=== PATIENT | male | born 1980 | race Caucasian/White ===

== ENCOUNTER 2024-08-06 19:05 | Emergency (ER) | payer OTHER, SELFPAY ==
--- OUTSIDE RECORDS SUMMARY | 2024-08-06 19:07 | XMS_ITS | Patient Health Summary ---
Author Organization [facility] writewith Address [address] [place] [address] Care Team Providers Care Senior Environmental Practice Leader Name Role Phone Unavailable Primary Care Provider Unavailabl e Note from [facility],non-owned Affiliates and Associated Physician Practices is amultiple site organization consisting of ambulatory clinics and hospital sitesin [place], [place], [place] and [place]. This disclosure is being madepursuant to the Care Everywhere program and may not contain all information available regarding this patient. Last updated 18.[facility] writewith Social History Tobacco Use Types Packs/Day Years Used Date Smoking Tobacco: Never Assessed Sex and Gender Information Value Date Recorded Sex Assigned at Not on file Gender Identity Not on file Sexual Orientation Not on file Procedures * QUANTIFERON TB-GOLD PLUS RFLXD(Performed 10/03/2023) Performed for Encounter for drug screening * VARICELLA ZOSTER ANTIBODY IGG(Performed 10/03/2023) Performed for Encounter for drug screening * RUBELLA ANTIBODY IGG(Performed 10/03/2023) Performed for Encounter for drug screening * QUANTIFERON TB-GOLD(Performed 10/03/2023) Performed for Encounter for drug screening * DRUG SCREEN COLLECTION NON DOT(Performed 10/03/2023) Performed for Encounter for drug screening Results * QUANTIFERON TB-GOLD PLUS RFLXD (10/03/2023 8:23 AM CDT) [facility] QuantiFERON Criteria Comment 10/05/2023 9:08 AM CDT [facility] ([facility]) Comment: QuantiFERON-TB Gold Plus is a qualitative indirect test for M tuberculosis infection (including disease) and is intended for use in conjunction with risk assessment, radiography, and other medical and diagnostic evaluations. The QuantiFERON-TB Gold Plus result is determined by subtracting the Nil value from either TB antigen (Ag) value. The Mitogen tube serves as a control for the test. QuantiFERON TB1 Ag Value 0.03 IU/mL 10/05/2023 9:08 AM CDT [facility] ([facility]) QuantiFERON TB2 Ag Value 0.03 IU/mL 10/05/2023 9:08 AM CDT [facility] ([facility]) QuantiFERON Nil Value 0.01 IU/mL 10/05/2023 9:08 AM CDT [facility] ([facility]) QuantiFERON Mitogen Value >10.00 IU/mL 10/05/2023 9:08 AM CDT [facility] ([facility]) Blood BLOOD SPECIMEN / Unknown Lab Venipuncture / Unknown 10/03/2023 8:23 AM CDT 10/03/2023 8:23 AM CDT Narrative [facility] ([facility]) - 10/05/2023 9:08 AM CDT Performed at: [address] [place] [id number] Operations Dispatcher: Dhruv Robin PhD, Phone: [phone] Provider Unknown LAB - CHEMISTRY TIFFANY REA Performing Organization Address City/[facility]/ZIP Co de Phone Number [facility] ([facility]) [address] [place] [address] * DRUG SCREEN COLLECTION NON DOT (10/03/2023 8:23 AM CDT) [facility] Specimen Collection KE 10/03/2023 8:40 AM CDT [facility] ([facility]) Other URINE / Unknown Collection / Unknown 10/03/2023 8:23 AM CDT 10/03/2023 8:23 AM CDT Provider Unknown LAB - URINE CHEMISTR Y ORDERABLES [facility] ([facility]) [address] [place] [address] * (ABNORMAL) VARICELLA ZOSTER ANTIBODY IGG (10/03/2023 8:23 AM CDT) Varicella zoster Virus Antibody IgG 151(L) Immune >165 index 10/04/2023 8:09 AM CDT [facility] ([facility]) Comment: A second sample should be collected and tested no less than 2-4 weeks. Negative <135 Equivocal 135 - 165 Positive >165 A positive result generally indicates exposure to the pathogen or administration of specific immunoglobulins, but it is not indication of active infection or stage of disease. Blood BLOOD SPECIMEN / Unknown Lab Venipuncture / Unknown 10/03/2023 8:23 AM CDT 10/03/2023 8:23 AM CDT Narrative [facility] ([facility]) - 10/04/2023 8:09 AM CDT Performed at: [facility] [id number] Operations Dispatcher: Dhruv Robin PhD, Phone: [phone] Provider Unknown LAB - CHEMISTRY ORDE ÁLVARO Performing Organization Address [facility] de Phone Number [facility] [address] [place] [address] * RUBELLA ANTIBODY IGG (10/03/2023 8:23 AM CDT) Pathologist [facility] Rubella Antibody 1.45 Immune >0.99 index 10/04/2023 7:07 AM CDT [facility] ([facility]) Comment: Non-immune <0.90 Equivocal 0.90 - 0.99 Immune >0.99 Blood BLOOD SPECIMEN / Unknown Lab Venipuncture / Unknown 10/03/2023 8:23 AM CDT 10/03/2023 8:23 AM CDT Narrative [facility] ([facility]) - 10/04/2023 7:07 AM CDT Performed at: [facility] [id number] Operations Dispatcher: Dhruv Robin PhD, Phone: [phone] Provider Unknown LAB - SEROLOGY ORDER JUDI Performing Organization Address [facility]/ZIP Co de Phone Number [facility]) [address] [place] [address] * QUANTIFERON TB-GOLD (10/03/2023 8:23 AM CDT) [facility] QuantiFERON Incubation Incubation performed. 10/05/2023 9:08 AM CDT [facility]) QuantiFERON-TB Gold Plus Negative Negative 10/05/2023 9:08 AM CDT [facility] ([facility]) Comment: No response to M tuberculosis antigens detected. Infection with M tuberculosis is unlikely, but high risk individuals should be considered for additional testing (ATS/IDSA/CDC Clinical Practice Guidelines, 2017). The reference range is an Antigen minus Nil result of <0.35 IU/mL. Chemiluminescence immunoassay methodology Blood BLOOD SPECIMEN / Unknown Lab Venipuncture / Unknown 10/03/2023 8:23 AM CDT 10/03/2023 8:23 AM CDT Narrative [facility] ([facility]) - 10/05/2023 9:08 AM CDT Performed at: - [address] [id number] Operations Dispatcher: Dhruv Robin PhD, Phone: [phone] Provider Unknown LAB - CHEMISTRY TIFFANY REA [facility] ([facility]) [address] [place] [address]
--- OUTSIDE RECORDS SUMMARY | 2024-08-06 19:07 | XMS_ITS | Clinical Summary ---
Author Organization [facility] Address [address] [place] [address] Care Team Providers Care Solder Leveler [employer] Name Role Phone Unavailable Primary Care Provider Unavailabl e Source Comments [facility],non-owned Affiliates and Associated Physician Practices is amultiple site organization consisting of ambulatory clinics and hospital sitesin [place], [place], [place] and [place]. This disclosure is being madepursuant to the Care Everywhere program and may not contain all information available regarding this patient. Last updated 18.[facility] Social History Tobacco Use Types Packs/Day Years Used Date Smoking Tobacco: Never Assessed Sex and Gender Information Value Date Recorded Sex Assigned at Not on file Gender Identity Not on file Sexual Orientation Not on file Plan of Treatment Health Maintenance Due Date Last Done Comments COLOGUARD (AGES 45-75) - COL ON CA SCREENING 1979 COLON MONITORING 1979 COLONOSCOPY - COLON CA SCREENING 1979 CT COLONOGRAPHY - COLON CA SCREENING 1979 Colorectal Cancer Screening 1979 FIT - COLON CA SCREENING 1979 FLEX SIG - COLON CA SCREENING 1979 LIPID TESTING 1979 HIV SCREENING 1994 HEPATITIS C SCREENING 05/25/1997 DTAP/TDAP/TD VACCINES (1 - Tdap) 1998 HEPATITIS B VACCINE (1 of 3 - 19+ 3-dose series) 1998 COVID-19 VACCINE ( - 2023-2 5 season) 2024 INFLUENZA VACCINE (#1) 2024 DEPRESSION SCREENING 06/27/2024 ZOSTER VACCINE (1 of 2) 2029 HIB VACCINE Aged Out No longer eligi ble based on patient's age to complete this topic HPV VACCINE Aged Out No longer eligi ble based on patient's age to complete this topic MENINGOCOCCAL (Group B) VACCINE Aged Out No longer eligible based on patient's age to complete this topic MENINGOCOCCAL VACCINE Aged Out No juarez kenton eligible based on patient's age to complete this topic PNEUMOCOCCAL VACCINE Aged Out No long er eligible based on patient's age to complete this topic
--- OUTSIDE RECORDS SUMMARY | 2024-08-06 19:07 | XMS_ITS | Referral Summary ---
Author Organization [facility] [employer] Address [address] [place] [address] Care Team Providers Care Mucker Cofferdam Name Role Phone Unavailable Primary Care Provider Unavailabl e Source Comments [facility],non-owned Affiliates and Associated Physician Practices is amultiple site organization consisting of ambulatory clinics and hospital sitesin [place], [place], [place] and [place]. This disclosure is being madepursuant to the Care Everywhere program and may not contain all information available regarding this patient. Last updated 18.[facility] [employer] Social History Tobacco Use Types Packs/Day Years Used Date Smoking Tobacco: Never Assessed Sex and Gender Information Value Date Recorded Sex Assigned at Not on file Gender Identity Not on file Sexual Orientation Not on file Plan of Treatment Not on file
--- OUTSIDE RECORDS SUMMARY | 2024-08-06 19:08 | XMS_ITS | Clinical Summary ---
Author Organization [facility] Address [address] [place] [address] Care Team Providers Care Donations Attendant Name Role Phone Dylan Durbin MD Primary Care Provider [phone] Dylan Durbin MD Unavailable [phone] Kamilah Triana NP Unavailable Allergies No known active allergies Medications albuterol HFA (PROVENTIL HFA) 90 mcg/actuation inhaler inhale 2 puff by inhalation route every 4 - 6 hours as needed 1 Inhaler 6 06/17/20 16 Active acetaminophen (TYLENOL) 500 mg tablet Take 1 tablet (500 mg total) by mouth every 6 (six) hours as needed for pain Active loratadine (CLARITIN) 10 mg tablet Take 1 tablet (10 mg total) by mouth daily Active metFORMIN (GLUCOPHAGE) 500 mg tabletIndications:Ty pe 2 diabetes mellitus without complication, without long-term current use of insulin (CMS/HCC) ([facility]) Take 2 tablets (1,000 mg total) by mouth 2 (two) times a day with meals 120 tablet 11 01/18/20 23 Active chlorthalidone (HYGROTON) 25 mg tabletIndications:Hy pertension associated with diabetes (HCC) Take 1 tablet (25 mg total) by mouth daily 90 tablet 1 02/26/20 23 Active busPIRone (BUSPAR) 5 mg tabletIndications:Ge neralized Anxiety Disorder Take 1 tablet (5 mg total) by mouth 3 (three) times a day 90 tablet 1 02/26/20 23 Active azelastine (ASTELIN) 137 mcg (0.1 %) nasal spray Administer 1 spray into each nostril 2 (two) times a day Use in each nostril as directed 30 mL 06/03/20 23 Active glipiZIDE (GLUCOTROL) 5 mg tabletIndications:ty pe 2 diabetes mellitus Take 1 tablet (5 mg total) by mouth daily 90 tablet 3 06/03/20 23 Active blood-glucose sensor deviceIndications:Un controlled type 2 diabetes mellitus with hyperglycemia (HCC) 1 Device every 2 (two) weeks 2 each 3 06/03/20 23 Active fenofibrate nanocrystallized (TRICOR) 145 mg tabletIndications:Hy perlipidemia associated with type 2 diabetes mellitus (HCC) Take 1 tablet (145 mg total) by mouth daily 90 tablet 4 06/03/20 23 Active atorvastatin (LIPITOR) 20 mg tabletIndications:Hy perlipidemia associated with type 2 diabetes mellitus (HCC) Take 1 tablet (20 mg total) by mouth daily 90 tablet 4 06/03/20 23 Active montelukast (SINGULAIR) 10 mg tabletIndications:Ch ronic rhinitis Take 1 tablet (10 mg total) by mouth nightly 90 tablet 4 06/03/20 23 Active losartan (COZAAR) 100 mg tabletIndications:Hy pertension associated with diabetes (HCC) TAKE 1 TABLET BY MOUTH DAILY 90 tablet 2 07/27/19 24 Active amLODIPine (NORVASC) 5 mg tabletIndications:Hy pertension associated with diabetes (HCC) TAKE 2 TABLETS(10 MG) BY MOUTH DAILY 180 tablet 08/22/19 24 Active Active Problems Problem Noted Date Diagnosed Date Class 3 severe obesity due t o excess calories with serious comorbidity and body mass index (BMI) of 40.0 to 44.9 in adult 11/14/2023 Assessment & Plan (11/14/2023 3:49 PM CDT): Keep up the great work with weight loss! Acute lateral meniscal tear 06/03/2023 Overview (06/03/2023): suspicion for posteolateral Fall injury while running 06/03/2023 Arthralgia of knee 06/03/2023 Lumbago 06/03/2023 Uncontrolled type 2 diabetes mellitus with hyper glycemia 06/03/2023 Assessment & Plan (11/14/2023 3:48 PM CDT): Improving. Keep up the great work! Will continue to monitor. Red flags reviewed. Assessment & Plan (06/03/2023 6:22 PM CAR PINCHER): Lab Results Component Value Date HGBA1C 9.3 (H) 2023 HGBA1C 9.6 02/25/2023 HGBA1C 9.3 11/18/2022 Currently taking metformin 500 mg bid. Higher doses have caused diarrhea/gi symptoms. Will add glipizide 5 mg daily. Discussed benefits of CGM use. Declines referral to field scout. Monofilament exam completed today, no loss of protective senses. Would like for patient to repeat labs and follow-up in 3 months. Chronic maxillary sinusitis 06/03/2023 Assessment & Plan (06/03/2023 6:23 PM CAR PINCHER): Patient with frequent sinus infections. Slight improvement with most recent course of Augmentin. Continues daily antihistamine in sinus rinses. Unable to tolerate Flonase secondary to nosebleeds. Denies any fevers or purulent nasal drainage. Offered referral to ENT, patient declines but will consider in the future. Chronic rhinitis 06/03/2023 Assessment & Plan (06/03/2023 6:24 PM CAR PINCHER): Patient reports constant nasal drainage and postnasal drainage. Continues daily antihistamine and sinus rinses. Has never had any formal allergy testing, referral placed today. Prescribed nightly Singulair. Can try Astelin, will discontinue if experiencing nasal irritation or nosebleeds. Anxiety 02/25/2023 Assessment & Plan (02/25/2023 3:15 PM CDT): Patient is hesitant to retry SSRI/SNRI medication as he previously experienced negative sexual side effects. Explained to patient that Wellbutrin is likely going to adequately treating anxiety. Will try low-dose escitalopram and BusPar and monitor response. Discussed adding bupropion if patient experiences sexual dysfunction related to use of Lexapro. Explained that untreated hypertension and diabetes can also lead to ED. Encouraged stress reduction, offered to excuse patient from work for 1 week given significantly elevated blood pressure in response to stressors however he prefers to monitor for now. Patient denies depressive symptoms. Will return to office in 3 months for follow-up. Hyperlipidemia associated with type 2 diabetes kelsi khan 01/28/2022 Assessment & Plan (06/03/2023 6:21 PM CAR PINCHER): Reviewed elevated cholesterol today with patient. Recommended diet and lifestyle changes. Discussed increased risk of pancreatitis with elevated triglycerides. Prescribed atorvastatin 20 mg daily and fenofibrate 145 mg daily. Continue fish oil supplement. Repeat labs ordered today Assessment & Plan (11/18/2022 4:28 PM CDT): Lipid panel ordered. Would consider statin use but he really does not want to take any medications. Will check lipid panel and revisit. Assessment & Plan (01/28/2022 1:11 PM CDT): Continue fish oil supplement and following low fat diet. Will repeat lipid panel in 1 month with labs. Morbid (severe) obesity due to excess calories 0 01/28/2022 Assessment & Plan (06/03/2023 6:28 PM CAR PINCHER): Encouraged patient to engage in formal exercise at least 1 day per week in addition to increasing overall daily activity and steps. Discussed limiting carbs/simple sugars from diet will continue to monitor LU on CPAP 07/31/2020 Assessment & Plan (11/14/2023 3:48 PM CDT): He does follow closely with Dr. Fisher. States he feels his sleep apnea has improved with weight loss. Will continue to monitor. Assessment & Plan (06/03/2023 6:20 PM CAR PINCHER): Nightly CPAP use. Assessment & Plan (11/18/2022 4:28 PM CDT): Reports 100% compliant with CPAP and will continue. Assessment & Plan (07/31/2020 1:36 PM CAR PINCHER): Needs to set up f/u appt w/Dr Fisher re: CPAP/pressures. Hypertension associated with diabetes 11/27/2019 Assessment & Plan (06/03/2023 6:20 PM CAR PINCHER): Blood pressure is elevated in office today, patient states he did not take his blood pressure medication. Currently prescribed losartan 100 mg daily, amlodipine 5 mg daily and chlorthalidone 25 mg daily. He denies any chest pain/pressure, headaches or visual disturbances, no palpitations or shortness a breath. Discussed importance tight control of blood pressure to decrease cardiovascular risk and end-organ damage Assessment & Plan (02/25/2023 3:12 PM CDT): Uncontrolled; will add chlorthalidone 25 mg tablet once daily to current medication regimen. Patient to continue taking amlodipine 10 mg daily and losartan 100 mg daily. Patient will continue checking BP at home and report blood pressure readings for the next week. Reviewed red flag signs and symptoms warranting immediate evaluation. Patient is aware of increased risk of cardiovascular complications and stroke related to uncontrolled high blood pressure. Assessment & Plan (11/18/2022 4:28 PM CDT): Getting good readings at home. Will continue losartan. Will continue amlodipine. Continue monitoring. Again lifestyle recommendations reviewed. Assessment & Plan (01/28/2022 1:08 PM CDT): Blood pressure well controlled today. Continue to hold hctz. Anticipate continued improvement in BP with diet changes and recent weight loss. Assessment & Plan (07/31/2020 1:38 PM CAR PINCHER): The blood pressure is under good control. Ideally it should be under 130/80. Continue medications without adjustment. Continue efforts to eat well (4-5 fruits and veggies) daily and exercise for about 30 min nearly every day. Watch salt intake, keeping to less than 2000mg per day. Limit alcohol. Include strategies to cope with stress. Labs ordered today; will contact w/results once received. Assessment & Plan (11/27/2019 8:09 AM CDT): The blood pressure is under good control. Ideally it should be under 130/80. Continue medications without adjustment. Continue efforts to eat well (4-5 fruits and veggies) daily and exercise for about 30 min nearly every day. Watch salt intake, keeping to less than 2000mg per day. Limit alcohol. Include strategies to cope with stress. Labs ordered today; will contact w/results once received. Chronic fatigue 11/27/2019 Assessment & Plan (11/27/2019 9:40 AM CDT): Agreeable to sleep medicine specialist for eval. Referral entered for Dr Fisher. Aware that his office will call to set up appt/testing. To increase activity & improve diet. Sleeping difficulty 12/26/2018 Assessment & Plan (11/27/2019 8:08 AM CDT): Trazodone 100mg nightly. Reviewed good sleep hygiene: no electronics, cool/dark room, warm shower/tub prior to bedtime, no caffeine after 3-4p, no exercise 3hr prior to sleep. Discussed need to increase activity & lose weight. Assessment & Plan (12/26/2018 8:38 AM CDT): Trazodone increased from 50mg to 100mg daily. Reviewed good sleep hygiene: no electronics, cool/dark room, warm shower/tub prior to bedtime, no caffeine after 3-4p, no exercise 3hr prior to sleep. Refused influenza vaccine 09/24/2018 Assessment & Plan (07/31/2020 1:33 PM CAR PINCHER): Discussed and the patient refuses immunization today. Educated regarding the need to vaccinate for personal protection and to limit the viruses in the community to protect those most vulnerable. Ventral hernia without obstruction or gangrene 1 Overview (04/18/2018): Added automatically from request for surgery [id number] Gout 09/15/2017 Assessment & Plan (09/15/2017 6:01 AM CDT): Continue allopurinol Hernia of anterior abdominal wall 07/07/2015 Overview (10/02/2016): Ventral hernia Assessment & Plan (09/15/2017 6:01 AM CDT): Patient follows with Dr. Mahmood. He is to lose weight prior to the repair. Will continue to monitor. Arthralgia of lower leg 11/10/2013 Overview (09/30/2016): JOINT PAIN-L/LEG Low back pain 11/05/2009 Overview (10/01/2016): LUMBAGO Assessment & Plan (11/14/2023 3:48 PM CDT): Chronic intermittent. No acute exacerbation. 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 Will provide him with a note and hopefully that will help. Assessment & Plan (07/31/2020 2:23 PM CAR PINCHER): Tramadol last filled 04/30/20, #30 w/1 refill. Resent again today. Wt loss had helped w/back pain. Assessment & Plan (12/26/2018 8:37 AM CDT): Chronic lumbar back pain. Tramadol daily for pain. Tramadol refilled at this time. Aware that we fill 30 days at a time. Reviewed med SE& scheduling. Encouraged otc tylenol/ibuprofen prn back pain. Discussed ice, gentle ROM, increased activity/core strengthening & other non pharm methods of pain relief. Denies bowel/bladder dysfunction. Denies cauda equina. Reviewed red flags. Diabetes mellitus type 2 in obese Assessment & Plan (07/31/2020 2:33 PM CAR PINCHER): Lab Results Component Value Date HGBA1C 8.3% 11/27/2019 HGBA1C 6.9 06/15/2019 HGBA1C 7.1 12/26/2018 A1c today=7.3% Reviewed dietary/exercise recommendations. Instructed to perform daily foot check. Reviewed medication side effects & scheduling. To check/record FSBS & bring to appointments. Labs ordered; will call with results when received. To make follow up appointment in 3 months. Reviewed red flags; what would warrant further evaluation. Assessment & Plan (11/27/2019 9:09 AM CDT): Lab Results Component Value Date HGBA1C 6.9 06/15/2019 HGBA1C 7.1 12/26/2018 HGBA1C 6.5 05/26/2018 Reviewed dietary/exercise recommendations. Instructed to perform daily foot check. Reviewed medication side effects & scheduling. To check/record FSBS & bring to appointments. Labs ordered; will call with results when received. To make follow up appointment in 6 months. Reviewed red flags; what would warrant further evaluation. Assessment & Plan (01/15/2019 10:33 AM CDT): A1C will be checked next visit. Discussed the need to strive for regular exercise (30min most days) and diet (get at least 4-5 servings of fruit and veggies daily). Watch carbs and simple sugars. Check the blood sugar 1-2 times per day. Check the feet daily for skin breakdown and infection. Assessment & Plan (12/26/2018 8:39 AM CDT): A1c=7.1% today Reviewed dietary/exercise recommendations. Instructed to perform daily foot check. Reviewed medication side effects & scheduling. To check/record FSBS & bring to appointments. To make follow up appointment in 3 months. Reviewed red flags; what would warrant further evaluation. Sinus tachycardia Resolved Problems Problem Noted Date Diagnosed Date Resolved Date Contusion of elbow 06/03/2023 3 Headache 06/03/2023 06/03/2023 Body mass index 40.0-44.9, adult ([facility]) 01/28/2022 06/03/2023 Assessment & Plan (11/18/2022 4:27 PM CDT): Reviewed lifestyle recommendations. Assessment & Plan (01/28/2022 1:10 PM CDT): Discussed healthy diet and importance of regular physical activity. Type 2 diabetes mellitus wit hout complication, without long-term current use of insulin ([facility]) 11/27/2019 06/03/2023 Assessment & Plan (02/25/2023 3:11 PM CDT): Diabetes continues to be uncontrolled, Hemoglobin A1c 9.6% today. Recommended patient start Lantus insulin, patient declines and prefers to continue to work on diet. Patient feels his diet and lifestyle is going to improve once his stress related to his job is reduced. Continue metformin 500 mg b.i.d.. Encouraged him to check his blood glucose more frequently. Will repeat labs and follow-up in office in 3 months. If no improvement in A1c will plan to start insulin and/or refer to endocrinology. Assessment & Plan (11/18/2022 4:30 PM CDT): A1c 9.3% today. Discussed goal of less than 7. He is well aware. Reviewed medication options as well as lifestyle recommendations. Will initiate Ozempic. We discussed contraindications and side effects. Denies personal or family history of mens or mtc. Follow-up in 1 month to monitor response. Assessment & Plan (01/28/2022 11:22 AM CDT): Condition is improving Will plan to repeat a1c in 1 month. Home blood glucose readings have decreased significantly per patient. Goal A1c <7% Lab Results Component Value Date HGBA1C 9.7 (H) 12/18/2021 HGBA1C 7.3 % 07/31/2020 HGBA1C 8.3% 11/27/2019 Maintenance Diabetic (Monofilament) foot exam - completed today, protective senses intact. Annual dilated eye exam overdue. Lab Results Component Value Date ALBCREATRATU 432 (H) 12/18/2021 BP management B/P today- 132/82 improving Patient is currently is on an ADOLFO/ARB, losartan. Goal blood pressure is <140/90, long-term blood pressure goal is to be as close to 120/80 as possible. Dyslipidemia management Personally reviewed most recent LDL as shown below. Patient is not on a statin cholesterol lowering medication. Goal of less than 70 Lab Results Component Value Date LDLCALC 58 12/18/2021 Diabetes Complications History of macrovascular disease (CVA, GA, PVD) is not Present. Complications secondary to Diabetes - impotence Smoking status: non-smoker Medications increase to metformin 500mg am and 1000mg pm. Discussed labs/ordered labs that have been ordered if applicable. Discussed eating a healthy low carb diet, include fresh fruits and vegetables daily. Diabetic education and nutritional counseling available if you have not had this before or annually. Encouraged to try moving at least a total of 30 minutes/day. Just move more. Instructed to wash, dry, lotion and check feet daily. Instructed to notify office if blood sugars are less than 80 or greater than 250 for 3 days Assessment & Plan (07/31/2020 2:33 PM CAR PINCHER): Lab Results Component Value Date HGBA1C 8.3% 11/27/2019 HGBA1C 6.9 06/15/2019 HGBA1C 7.1 12/26/2018 a1c today=7.3% Reviewed dietary/exercise recommendations. Instructed to perform daily foot check. Reviewed medication side effects & scheduling. To check/record FSBS & bring to appointments. Labs ordered; will call with results when received. To make follow up appointment in 3 months. Reviewed red flags; what would warrant further evaluation. Assessment & Plan (11/27/2019 9:08 AM CDT): Lab Results Component Value Date HGBA1C 6.9 06/15/2019 HGBA1C 7.1 12/26/2018 HGBA1C 6.5 05/26/2018 Reviewed dietary/exercise recommendations. Instructed to perform daily foot check. Reviewed medication side effects & scheduling. To check/record FSBS & bring to appointments. Labs ordered; will call with results when received. To make follow up appointment in 6 months. Reviewed red flags; what would warrant further evaluation. Encounter for screening for lipoid disorders 0 06/03/2023 Assessment & Plan (11/27/2019 9:09 AM CDT): 05/26/18 FO=373 HDL=25 ZK=198 LDL=99 TC/HDL=7.5 06/02/19 VO=148 HDL=31 KE=436 LDL=83 TC/HDL=5.0 11/27/19 MY=975 HDL=34 LQ=764 LDL=81.8 TC/HDL=5.8 Copy of results as well as written explanation given to Mr Ríos. Reviewed diet/lifestyle change. Morbid obesity with BMI of 40.0-44.9, adult 12/26/2018 06/03/2023 Assessment & Plan (07/31/2020 1:37 PM CAR PINCHER): The BMI is in the obese range thus increasing your risk for cardiovascular, endocrine, GI, and musculoskeletal problems. Strive to cut back on calories and increase exercise to achieve weight loss. Include at least 4-5 fruits and vegetables in the diet daily and exercise for about 30 min nearly every day. Limit fried and high fat foods and include lean sources of protein as well as low fat dairy or other calcium sources. Consider making short and fdc goal to track your progress. Keep a diet/exercise record or on line resource to track calories in and out. Discuss your efforts with me at the next visit. Look up [employer] [facility] - this is a free calorie tracking monica. Discussed healthy diet and importance of regular physical activity. Assessment & Plan (11/27/2019 9:40 AM CDT): Reviewed need to lose weight, reviewed health benefits. Reviewed recommendations for daily intake & activity 20-30 minutes/day. Discussed healthy diet and importance of regular physical activity. States that he's recently added work out equipment at home that he will start using. Assessment & Plan (01/15/2019 9:47 AM CDT): Reviewed need to lose weight, reviewed health benefits. Reviewed recommendations for daily intake & activity 20-30 minutes/day. Discussed healthy diet and importance of regular physical activity. Assessment & Plan (12/26/2018 8:36 AM CDT): Reviewed need to lose weight, reviewed health benefits. Reviewed recommendations for daily intake & activity 20-30 minutes/day. Discussed healthy diet and importance of regular physical activity. Has started watching intake & increasing activity. Diverticulitis 04/18/2018 11/27/2019 Overview (04/18/2018): Added automatically from request for surgery [id number] Lactic acidosis 09/15/2017 11/27/2019 Assessment & Plan (09/15/2017 6:02 AM CDT): Due to sepsis from diverticulitis. Will patient on IV fluids. Awaiting repeat. HTN (hypertension) 09/15/2017 1 Assessment & Plan (11/27/2019 9:16 AM CDT): Does not want to add another medication. Wants to try lifestyle changes. The blood pressure is under good control. Ideally it should be under 130/80. Continue medications without adjustment. Continue efforts to eat well (4-5 fruits and veggies) daily and exercise for about 30 min nearly every day. Watch salt intake, keeping to less than 2000mg per day. Limit alcohol. Include strategies to cope with stress. Labs ordered today; will contact w/results once received. Assessment & Plan (01/15/2019 10:34 AM CDT): Increased amlodipine from 5mg daily to 10mg daily. The blood pressure is under good control. Ideally it should be under 130/80. Continue medications without adjustment. Continue efforts to eat well (4-5 fruits and veggies) daily and exercise for about 30 min nearly every day. Watch salt intake, keeping to less than 2000mg per day. Limit alcohol. Include strategies to cope with stress. To walk-in for BP check in 2-4 weeks. Assessment & Plan (12/26/2018 8:36 AM CDT): The blood pressure is under good control. Ideally it should be under 130/80. Continue medications without adjustment. Continue efforts to eat well (4-5 fruits and veggies) daily and exercise for about 30 min nearly every day. Watch salt intake, keeping to less than 2000mg per day. Include strategies to cope with stress. Do not double up losartan 100mg; take 100mg daily. To start amlodipine 5mg daily. appt made for 01/15/19 9639 for f/u. To check BP daily. Continue exercising. Congratulated on dietary changes. Assessment & Plan (09/15/2017 6:00 AM CDT): Appears controlled at this time. Will continue to monitor. Hold hydrochlorothiazide. Continue with IV fluids. If BP med needed will use alternative other than a diuretic as patient is currently septic. Hypokalemia 09/15/2017 11/27/2019 Assessment & Plan (09/15/2017 6:03 AM CDT): Likely due to hydrochlorothiazide. Patient received replacement in the ED. Will continue to monitor. Check Mag level. Hyperglycemia 09/15/2017 11/27/2019 Assessment & Plan (09/15/2017 6:04 AM CDT): Patient denies any history of diabetes. Patient advised he will be placed on a sliding scale with blood sugar checks however patient refused. Compromise was made with patient. If patient's blood sugar a.m. lab is still elevated then patient is okay with being placed on a low-dose sliding scale. Will continue to monitor if patient will allow for it. Sepsis 09/15/2017 11/27/2019 Assessment & Plan (09/15/2017 6:01 AM CDT): Secondary to diverticulitis. Blood cultures are in process. Lactate was elevated. Will continue to monitor. Patient is receiving IV fluids. He is on antibiotics. Patient still having fever. Will continue with p.r.n. Tylenol. Will add p.r.n. ibuprofen. Abdominal mass 08/26/2016 11/27/2019 Overview (11/19/2016): Right flank mass Knee pain 06/17/2016 06/03/2023 Overview (10/02/2016): Chronic pain of both knees Assessment & Plan (12/26/2018 8:37 AM CDT): Chronic knee pain. Tramadol daily for pain. Tramadol refilled at this time. Aware that we fill 30 days at a time. Reviewed med SE& scheduling. Body mass index 40+ - severely obese 10/03/2015 11/27/2019 Overview (10/01/2016): Morbid obesity with BMI of 40.0-44.9, adult Diverticulitis of intestine 02/10/2015 11/27/2019 Overview (10/02/2016): Diverticulitis Assessment & Plan (09/15/2017 6:05 AM CDT): Continue Cipro and Flagyl. Clear liquids for now. Patient does not want Dilaudid. Requesting tramadol. Will order p.r.n. tramadol and p.r.n. morphine. Continue to monitor. Chronic fatigue syndrome 11/10/201307/2019 Overview (09/29/2016): CHRONIC FATIGUE SYNDROME Immunizations Name Administration Dates Next Due Influenza, Unspecified 06/03/2023(Deferr ed: Patient Refused),02/25/2023(Deferred: Patient Refused),03/27/2022(Deferred: Patient Refused),03/27/2022(Deferred: Patient Refused),01/28/2022(Deferred: Patient Refused),02/25/2021(Deferred: Patient Refused),08/18/2020(Deferred: Patient Refused),06/27/2020(Deferred: Patient Refused),03/27/2020(Deferred: Patient Refused),06/27/2019(Deferred: Patient Refused),06/27/2019(Deferred: Patient Refused),06/15/2019(Deferred: Patient Refused),01/15/2019(Deferred: Patient Refused),12/26/2018(Deferred: Patient Refused),09/21/2018(Deferred: Patient Refused),09/21/2018(Deferred: Patient Refused),06/27/2018(Deferred: Patient Refused),10/18/2017(Deferred: Patient Refused),06/27/2017(Deferred: Patient Refused),06/27/2017(Deferred: Patient Refused),06/27/2017(Deferred: Patient Refused) Pneumococcal Polysaccharide PPV23 01/28/2022(Def erred: Patient Refused) Surgical History Surgery Date Site/Laterality Comments TONSILLECTOMY Tonsillectomy OTHER SURGICAL HISTORY surgery / kidney stones OTHER SURGICAL HISTORY SVT: resolved spontaneously OTHER SURGICAL HISTORY 06/27/2010 - 06/26/2011 umbilical hernia: umbilical herniorraphy CARPAL TUNNEL RELEASE 06/27/2015 - 06/26/2016 Bilateral COLECTOMY 06/01/2018 Sigmoid Colectomy with Open Hernia Repair HERNIA REPAIR 06/01/2018 Open Repair of Ventral Hernia with Mesh, Sigmoid Colectomy Medical History Medical History Date Comments Calculus of kidney kidney stones Hypertension Hypertension Hx Other Medical 2007 SVT; 2017 patie nt Septic and went into SVT witnessed [facility] and admitted Hx Other Medical umbilical herni a; Outcome: resolved Hx Other Medical 02/10/2015 diverticulitis; Comments: GDS 02/19/2015 - Hx Other Medical 02/10/2015 ventral hernia; Comments: GDS 02/19/2015 - Diverticulosis Type 2 diabetes mellitus (HCC) Gout Diverticulitis of intestine 02/10/2015 Dive rticulitis LU on CPAP 07/31/2020 Family History Medical History Relation Name Comments Alzheimer's disease Father Dementia Father Other Father Alive and well; Hypertension Mother Hypertension; Other Mother Alive and well; Ovarian cancer Mother Cancer -ovari an; Coronary artery disease Other Fami ly history of Coronary artery disease; Relation Name Status Comments Father father low ssed away last month. has not seen him in 27 years Mother Alive Other Social History Tobacco Use Types Packs/Day Years Used Date Smoking Tobacco: Never Smokeless Tobacco: Never Alcohol Use Standard Drinks/Week Comments Not Currently 0 (1 standard drink = 0.6 oz pur e alcohol) Occasionally AUDIT-C Answer Date Recorded Q1: How often do you have a drink containing alc ohol? 2-4 times a month 01/17/2023 Q2: How many drinks containi ng alcohol do you have on a typical day when you are drinking? 1 or 2 01/17/2023 Q3: How often do you have si x or more drinks on one occasion? Never 01/17/2023 PHQ-2 Answer Date Recorded PHQ-2 Total Score (If total score is 3 or more points, staff should administer the PHQ-9) 2 06/03/2023 Sex and Gender Information Value Date Recorded Sex Assigned at Not on file Legal Sex Male 10:42 PM CAR PINCHER Gender Identity Not on file Sexual Orientation Not on file Obstetrics History Last Filed Vital Signs Vital Sign Reading Time Taken Comments Blood Pressure 138/74 11/14/2023 2:59 PM CDT Pulse 106 11/14/2023 2:59 PM CDT Temperature 36.4 C (97.6 F) 11/14/2023 2:59 PM CDT Respiratory Rate 24 11/14/2023 2:59 PM CDT Oxygen Saturation 97% 11/14/2023 2:59 PM CDT Inhaled Oxygen Concentration - - Weight 119 kg (262 lb 6.4 oz) 11/14/2023 2:59 PM CDT Height 170.2 cm (5' 7.01 ) 11/14/2023 2:59 PM CD T Body Mass Index 41.09 11/14/2023 2:59 PM CDT Plan of Treatment Health Maintenance Due Date Last Done Comments Hepatitis C Screening 1979 Pneumococcal vaccine <65 (1 of 2 - PCV) 1985 DTaP/Tdap/Td Vaccine (1 - Tdap) 1990 Hepatitis B Screening 1997 Regular Well Visit/Exam 18-64 1997 Dilated Eye Exam 08/24/2023 08/24/2022, 08/24/2022 Influenza Vaccine (#1) 2024 Hemoglobin A1C 03/31/2024 09/30/2023, 09/2022, 02/25/2023, Additional history exists Albumin Creatinine Ratio, Urine 2024 2023, 12/18/2021 Depression Screening 06/03/2024 06/03/2023, 02/25/2023, 01/17/2023, Additional history exists Foot Exam 06/03/2024 06/03/2023, 09/2021, 07/31/2020, Additional history exists Lipid Panel 09/29/2024 09/30/2023, 09/2022, 11/19/2022, Additional history exists eGFR 09/29/2024 09/30/2023, 09/2022, 11/19/2022, Additional history exists Colon Cancer Screening-Colonoscopy 06/03/2025 06/03/2015, 06/03/2015 HPV Vaccines Aged Out No longer eligi ble based on patient's age to complete this topic Medical Devices Implanted Type Area Law Office Assistant Device Identifier Shelf Expiration Date Model / Serial / Lot [employer]/C R Bard [id number] Phasix 10x8in Monofilament Scaffold Full Resorbable Rectangle - [id number] Implanted:Qty: 1 on 06/01/2018 by Connor Mahmood MD at [facility] N/A: Abdomen [employer] Bard 12/23/2019 [id number] / / [id number] Procedures Procedure Name Priority Date/Time Associated Diagnosis Comments COMPREHENSIVE METABOLIC PANEL Routine 09/30/2023 Hypertension associated with diabetes (HCC) Hyperlipidemia associated with type 2 diabetes mellitus (HCC) HEMOGLOBIN A1C Routine 09/30/2023 Type 2 diabetes mellitus without complication, without long-term current use of insulin (CMS/HCC) (HCC) LIPID PANEL Routine 09/30/2023 Hypertension associated with diabetes (HCC) Hyperlipidemia associated with type 2 diabetes mellitus (HCC) ALBUMIN CREATININE RATIO, URINE Routine 2023 1:13 PM CAR PINCHER Type 2 diabetes mellitus without complication, without long-term current use of insulin (CMS/HCC) (HCC) Hypertension associated with diabetes (HCC) DIABETIC EYE EXAM Routine 08/24/2022 COLONOSCOPY IMAGES 06/03/2015 from Last 3 Months or Most Recently Relevant to Health Maintenance Results * (ABNORMAL) Hemoglobin A1c (09/30/2023) SCRIBED Hemoglobin A1c 8.0 Not Given % EXTERNAL LAB Blood 09/30/2023 Thania Tavera NP LAB BLOOD ORDERABLES Edited Result - Final EXTERNAL LAB * (ABNORMAL) Lipid panel (09/30/2023) SCRIBED Cholesterol, Total 195 Not Given EXTERNAL LAB SCRIBED HDL 33 Not Given EXTERNAL LAB SCRIBED LDL 116 Not Given EXTERNAL LAB SCRIBED Triglycerides 232 Not Given EXTERNAL LAB Blood 09/30/2023 Thania M. Magowan SLIDE FORMING MACHINE OPERATOR LAB BLOOD ORDERABLES Edited Result - Final Performing Organization Address [facility] de Phone Number EXTERNAL LAB * Comprehensive metabolic panel (09/30/2023) SCRIBED Sodium 139 Not Given mmol/L EXTERNAL LAB SCRIBED Potassium 3.9 Not Given mmol/L EXTERNAL LAB SCRIBED Chloride 105 Not Given mmol/L EXTERNAL LAB SCRIBED Carbon Dioxide 24 Not Given mmol/L EXTERNAL LAB SCRIBED Urea Nitrogen (BUN) 10.9 Not Given mg/dl EXTERNAL LAB SCRIBED Creatinine 0.85 Not Given mg/dl EXTERNAL LAB SCRIBED Calcium 9.7 Not Given mg/dl EXTERNAL LAB SCRIBED eGFR in NonAfrican Croatian 109.9 Not Given EXTERNAL LAB Blood 09/30/2023 Thania Tavera SLIDE FORMING MACHINE OPERATOR LAB BLOOD ORDERABLES Final Result Performing Organization Address [facility] de Phone Number EXTERNAL LAB * (ABNORMAL) Albumin Creatinine Ratio, Urine (2023 1:13 PM CAR PINCHER) Albumin Ur 750.0 mg/L [facility] ([facility]) Comment: Interpretive Data No reference range established. Current interpretive data was last revised 2018. Testing performed by: [address] [address] Creatinine Ur 90.0 mg/dL [facility] ([facility]) Comment: Interpretive Data No reference range established. Current interpretive data was last revised 2018. Testing performed by: [address] [address] Albumin Creatinine Ratio, Ur 833(H) 1 - 29 mg/g [facility] ([facility]) Comment:Testing performed by : [address] [address] Urine 2023 1:13 PM CAR PINCHER 2023 5:59 PM CAR PINCHER Thania Tavera SLIDE FORMING MACHINE OPERATOR LAB URINE ORDERABLES Final Result Performing Organization Address [facility] de Phone Number [facility] ([place]) [address] [facility] [place] [address] * Diabetic Eye Exam (08/24/2022) us Historical Provider HEALTH MAINTENANCE Final Result * COLONOSCOPY IMAGES (06/03/2015) Anatomical Region Laterality Modality Other Narrative 06/03/2015 Ordered by an unspecified provider. us Historical Provider GI PROCEDURE ORDERABLES F inal Result from Last 3 Months or Most Recently Relevant to Health Maintenance Insurance [employer] OOS [employer] COVENTRY PPO BLUE [employer] [place] HEALTH[employer] OPEN ACCESS [employer] HE[employer] OPEN ACCESS Advance Directives For more information, please contact: [phone] * Full Code (Latest Code Status on File) Date Activated Date Inactivated Comments 09/14/2017 9:36 PM 09/17/2017 4:23 PM Care Teams Donations Attendant Relationship Specialty Start Date End Date Dylan Durbin MD [address] [place] [address] PCP - General 08/14/20 Dylan Durbin MD [address] [place] [address] 08/14/20 Kamilah Triana, KAITLIN [address] [place] [address] Nurse Practitioner Nurse Practitioner 09/16/17
--- OUTSIDE RECORDS SUMMARY | 2024-08-06 19:08 | XMS_ITS | Referral Summary ---
Author Organization [facility] Address [address] [place] [address] Care Team Providers Care Track Laminating Machine Tender Name Role Phone Dylan Durbin MD Primary Care Provider [phone] Dylan Durbin MD Unavailable [phone] Kamilah Triana NP Unavailable [phone] Allergies No known active allergies Medications albuterol [...] long-term current use of insulin (CMS/HCC) ([facility]) Take 2 tablets (1,000 mg total) by [...] reviewed. Assessment & Plan (06/03/2023 6:22 PM [facility]): Lab Results Component Value Date HGBA1C 9.3 (H) 2023 HGBA1C 9.6 02/25/2023 HGBA1C 9.3 11/18/2022 Currently taking metformin 500 mg bid. Higher doses have caused diarrhea/gi symptoms. Will add glipizide 5 mg daily. Discussed benefits of CGM use. Declines referral to coding educator. Monofilament exam completed today, no loss of protective senses. Would like for patient to repeat labs and follow-up in 3 months. Chronic maxillary sinusitis 06/03/2023 Assessment & Plan (06/03/2023 6:23 PM [facility]): Patient with frequent sinus infections. Slight improvement with most recent course of Augmentin. Continues daily antihistamine in sinus rinses. Unable to tolerate Flonase secondary to nosebleeds. Denies any fevers or purulent nasal drainage. Offered referral to ENT, patient declines but will consider in the future. Chronic rhinitis 06/03/2023 Assessment & Plan (06/03/2023 6:24 PM [facility]): Patient reports constant nasal drainage and postnasal [...] 01/28/2022 Assessment & Plan (06/03/2023 6:21 PM [facility]): Reviewed elevated cholesterol today with patient. Recommended [...] 01/28/2022 Assessment & Plan (06/03/2023 6:28 PM [facility]): Encouraged patient to engage in formal exercise [...] monitor. Assessment & Plan (06/03/2023 6:20 PM [facility]): Nightly CPAP use. Assessment & Plan (11/18/2022 4:28 PM CDT): Reports 100% compliant with CPAP and will continue. Assessment & Plan (07/31/2020 1:36 PM [facility]): Needs to set up f/u appt w/Dr Fisher re: CPAP/pressures. Hypertension associated with diabetes 11/27/2019 Assessment & Plan (06/03/2023 6:20 PM [facility]): Blood pressure is elevated in office today, [...] loss. Assessment & Plan (07/31/2020 1:38 PM [facility]): The blood pressure is under good control. [...] 09/24/2018 Assessment & Plan (07/31/2020 1:33 PM [facility]): Discussed and the patient refuses immunization today. Educated regarding the need to vaccinate for personal protection and to limit the viruses in the community to protect those most vulnerable. 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 Will provide him with a note and hopefully that will help. Assessment & Plan (07/31/2020 2:23 PM [facility]): Tramadol last filled 04/30/20, #30 w/1 refill. [...] obese Assessment & Plan (07/31/2020 2:33 PM [facility]): Lab Results Component Value Date HGBA1C 8.3% [...] 06/03/2023 06/03/2023 Body mass index 40.0-44.9, adult ([facility]) 01/28/2022 06/03/2023 Assessment & Plan (11/18/2022 4:27 PM CDT): Reviewed lifestyle recommendations. Assessment & Plan (01/28/2022 1:10 PM CDT): Discussed healthy diet and importance of regular physical activity. Type 2 diabetes mellitus wit hout complication, without long-term current use of insulin ([facility]) 11/27/2019 06/03/2023 Assessment & Plan (02/25/2023 3:11 [...] Diabetes Complications History of macrovascular disease (CVA, RI, PVD) is not Present. Complications secondary to [...] days Assessment & Plan (07/31/2020 2:33 PM [facility]): Lab Results Component Value Date HGBA1C 8.3% [...] & Plan (11/27/2019 9:09 AM CDT): 05/26/18 BT=907 HDL=25 KA=475 LDL=99 TC/HDL=7.5 06/02/19 OR=051 HDL=31 QY=797 LDL=83 TC/HDL=5.0 11/27/19 MM=194 HDL=34 YT=292 LDL=81.8 TC/HDL=5.8 Copy of results as well as written explanation given to Mr Ríos. Reviewed diet/lifestyle change. Morbid obesity with BMI of 40.0-44.9, adult 12/26/2018 06/03/2023 Assessment & Plan (07/31/2020 1:37 PM [facility]): The BMI is in the obese range [...] other calcium sources. Consider making short and half-way goal to track your progress. Keep a diet/exercise record or on line resource to track calories in and out. Discuss your efforts with me at the next visit. Look up [employer] - this is a free calorie tracking [...] (04/18/2018): Added automatically from request for surgery [id number] Lactic acidosis 09/15/2017 11/27/2019 Assessment & Plan [...] amlodipine 5mg daily. appt made for 01/15/19 2556 for f/u. To check BP daily. Continue [...] Pneumococcal Polysaccharide PPV23 01/28/2022(Def erred: Patient Refused) Social History Tobacco Use Types Packs/Day Years [...] on file Legal Sex Male 10:42 PM [facility] Gender Identity Not on file Sexual Orientation Not on file Last Filed Vital Signs Vital Sign Reading [...] 11/14/2023 2:59 PM CDT Plan of Treatment Not on file Medical Devices Implanted Type Area Gear Finisher Device Identifier Shelf Expiration Date Model / Serial / Lot [employer]/C R Bard [id number] Phasix 10x8in Monofilament Scaffold Full Resorbable Rectangle - [id number] Implanted:Qty: 1 on 06/01/2018 by Connor Mahmood MD at [facility] N/A: Abdomen [employer] 12/23/2019 [id number] / / [id number] Procedures Procedure Name Priority Date/Time Associated Diagnosis [...] CREATININE RATIO, URINE Routine 2023 1:13 PM [facility] Type 2 diabetes mellitus without complication, without [...] Edited Result - Final Performing Organization Address [facility] Co de Phone Number EXTERNAL LAB * (ABNORMAL) Lipid panel (09/30/2023) SCRIBED Cholesterol, Total 195 Not Given EXTERNAL LAB SCRIBED HDL 33 Not Given EXTERNAL LAB SCRIBED LDL 116 Not Given EXTERNAL LAB SCRIBED Triglycerides 232 Not Given EXTERNAL LAB Blood 09/30/2023 Thania Tavera NP LAB BLOOD ORDERABLES Edited Result - Final EXTERNAL LAB * Comprehensive metabolic panel (09/30/2023) [...] mg/dl EXTERNAL LAB SCRIBED eGFR in NonAfrican Hungarian 109.9 Not Given EXTERNAL LAB Blood 09/30/2023 Result [facility] Thania Tavera AGRICULTURAL CHEMICALS INSPECTOR LAB BLOOD ORDERABLES Final Result Performing Organization Address [facility] Co de Phone Number EXTERNAL LAB * (ABNORMAL) Albumin Creatinine Ratio, Urine (2023 1:13 PM [facility]) Albumin Ur 750.0 mg/L [facility] ([facility]) Comment: Interpretive Data No reference range established. Current interpretive data was last revised 2018. Testing performed by: [facility], [address] [place] [address]., [id number] Creatinine Ur 90.0 mg/dL [facility] ([place]) Comment: Interpretive Data No reference range established. Current interpretive data was last revised 2018. Testing performed by: [facility], [address] [place] [address]., [id number] Albumin Creatinine Ratio, Ur 833(H) 1 - 29 mg/g [facility] ([facility]) Comment:Testing performed by : [facility], [address] [place] [address]., [id number] Urine 2023 1:13 PM [facility] 2023 5:59 PM [facility] Result [facility] Thania Tavera AGRICULTURAL CHEMICALS INSPECTOR LAB URINE ORDERABLES Final Result Performing Organization Address [facility] Co de Phone Number [facility] ([place]) [address] [facility] [place] [address] * Diabetic Eye Exam (08/24/2022) Historical Provider HEALTH MAINTENANCE Final Result * COLONOSCOPY IMAGES (06/03/2015) Anatomical Region Laterality Modality Other Narrative 06/03/2015 Ordered by an unspecified provider. Historical Provider GI PROCEDURE ORDERABLES F inal Result from Last 3 Months or Most Recently Relevant to Health Maintenance Insurance BLUE [employer] OOS AETNA CRESCENT PPO [employer]UE [place] [facility] Address: [address] [place] [address] HEALTHLINK OPEN ACCESS BLUE [employer]OS HEALTHLINK OPEN ACCESS Advance Directives For more information, please contact: [phone] * Full Code (Latest Code Status on File) Date Activated Date Inactivated Comments 09/14/2017 9:36 PM 09/17/2017 4:23 PM Care Teams Track Laminating Machine Tender Relationship Specialty Start Date End Date Dylan Durbin MD [address] [place] [address] PCP - General 08/14/20 Dylan Durbin MD [address] [place] [address] 08/14/20 [place] [address] Nurse Practitioner Nurse Practitioner 09/16/17
--- OUTSIDE RECORDS SUMMARY | 2024-08-06 19:08 | XMS_ITS | Continuity of Care Document ---
Author Name [facility] Organization DOD-IN Care Team Providers Care Geological E Logger Name Role Phone [facility] Unavailable Unavailable Problems Combined list of problems from Department of Defense and Veterans Affairs facilities. It does not include entries that were removed or entered in error. Problem Status Onset Date Problem Type Date of Resolution Comments Source Allergic rhinitis Active Condition [facility] Chronic low back pain Active Condition [facility] Chronic post-traumatic stress disorder Active Condition [facility] Chronic sinusitis Active Condition [facility] Erectile dysfunction Active Condition [facility] Essential hypertension Active Condition [facility] Exposure to Potentially Hazardous Substance ([facility] [id number]) Active Condition [facility] Hyperlipidemia Active Condition [facility] Mixed anxiety and depressive disorder Active Condition [facility] Obesity Active Condition [facility] Pain of bilateral knee joints Active Condition [facility] Prediabetes Active Condition [facility] visit for: physical medical evaluation board (MEB) Active Condition [facility] Other Physical Therapy Active Condition DoD Patient Education Inactive Condition DoD groin (inguinal) pain right side Inactive Condition US of testic le with normal blood flow. recommend repeat US of testicle in 2-3 months DoD joint pain, localized in the knee Active Condition DoD lumbago Active Condition [facility] routine pre-employment screening examination Active Condition DoD visit for: ears / hearing exam Active Condition DoD Need For Vaccination Hepatitis B Inactive Condition DoD visit for: services physical Inactive Condition Pending [facility] evaluation for 1. Groiin pain 2. Headaches 3. Lower back pain 4. Bilateral knee pain DoD headache Active Condition DoD Patient Education - Procreative Management Inactive Condition DoD acute meniscal tear lateral Active Condition suspicion for posteolateral DoD Diagnosis: ICD-10-CM J01.90 Acute sinusitis, unspecified Active Diagnosis [facility] Diagnosis: ICD-10-CM I10 Essential (primary) hypertension Active Diagnosis [facility] Diagnosis: ICD-10-CM N52.9 Male erectile dysfunction, unspecified Active Diagnosis [facility] Diagnosis: ICD-10-CM Z91.82 Personal history of deployment Active Diagnosis [facility] Diagnosis: ICD-10-CM Z02.9 Encounter for administrative examinations, unspecified Active Diagnosis [facility] Diagnosis: ICD-10-CM M54.50 Low back pain, unspecified Active Diagnosis [facility] Diagnosis: ICD-10-CM M25.569 Pain in unspecified knee Active Diagnosis [facility] Diagnosis: ICD-10-CM R73.03 Prediabetes Active Diagnosis [facility] Medications Combined list of outpatient medications from Department of Defense and Veterans Affairs facilities.Medications provided include 1) outpatient medications from the last 15 months, and 2) patient-reported medications. Medication Details Route Status Patient Instructions Prescription Expires Prescription Number Last Dispense Date Ordering Provider Order Date Order Qty Source ALBUTEROL SO4 90MCG/ACTUA T (CFC-F) INHL,ORAL,8 .5GM INHALE 2 PUFFS ORAL INHALATI ON FOUR TIMES A DAY NEEDED SHAKE WELL. RINSE MOUTHPIE CE FREQUENT LY TO PREVENT CLOGGING . RESPIR ATORY (INHAL ATION) ACTIVE 10/10/2024 [id number] 4 LILLIAN ROJAS 2023 3 [facility] AMLODIPINE BESYLATE 10MG TAB TAKE ONE TABLET BY MOUTH ONCE A DAY FOR HIGH BLOOD PRESSURE ORAL ACTIVE 09/30/2024 [id number] 5 LILLIAN ROJAS 2023 90 [facility] AMOXICILLIN TRIHYDRATE 875MG/CLAVU LANATE K 125MG TAB TAKE ONE TABLET BY MOUTH TWICE A DAY ORAL ACTIVE ALAINA FIGUEROA 2023 [facility] ATORVASTATI N CA 40MG TAB TAKE ONE-HALF TABLET BY MOUTH EVERY EVENING ORAL ACTIVE 09/30/2024 [id number] 5 LILLIAN ROJAS 2023 45 [facility] BUSPIRONE HCL 10MG TAB TAKE ONE-HALF TABLET BY MOUTH THREE TIMES A DAY DO NOT TAKE WITH GRAPEFRU IT JUICE. ORAL ACTIVE 09/30/2024 [id number] 5 LILLIAN ROJAS 2023 135 [facility] CAMPHOR/MEN THOL/METHYL SALICYLATE PATCH APPLY 1 PATCH TO SKIN SITE ONCE A DAY FOR PAIN (EXTERNA L USE ONLY) TRANSD ERMAL SUSPEND ED 05/02/2025 [id number] 5 LILLIAN ROJAS 2023 60 [facility] CETIRIZINE HCL 10MG TAB TAKE ONE TABLET BY MOUTH ONCE A DAY ORAL SUSPEND ED 07/28/2025 [id number] 5 LILLIAN ROJAS 2024 90 [facility] DICLOFENAC NA 1% GEL,TOP APPLY 2 GM TO AFFECTED AREA(S) FOUR TIMES A DAY NEEDED FOR PAIN DO NOT EXCEED MORE THAN 16 GRAMS DAILY TO ANY LOWER EXTREMIT Y JOINT. NOT MORE THAN 8 GRAMS DAILY TO ANY UPPER EXTREMIT Y JOINT. MAX 32GM/DAY OVER ALL JOINTS. (MEASURE DOSE WITH RULER ATTACHED INSIDE BOX) TOPICA L ACTIVE 05/02/2025 [id number] 4 LILLIAN ROJAS 2023 200 [facility] ESCITALOPRA M OXALATE 20MG TAB TAKE ONE-HALF TABLET BY MOUTH ONCE A DAY ORAL ACTIVE 09/30/2024 [id number] 5 LILLIAN ROJAS 2023 45 [facility] FLUTICASONE 250MCG/SALM ETEROL 50MCG INHL,ORAL,D ISKUS,60 INHALE 1 INHALATI ON ORAL INHALATI ON TWICE A DAY (OPEN DISKUS; CLICK ONLY ONCE; MAY INHALE TWICE TO COMPLETE DOSE; CLOSE WHEN FINISHED ) RINSE MOUTH AND SPIT AFTER EACH USE. RESPIR ATORY (INHAL ATION) ACTIVE 10/10/2024 [id number] 5 LILLIAN ROJAS 2023 3 [facility] FLUTICASONE PROPIONATE 50MCG/SPRAY SOLN,NASAL, 16GM INSTILL 2 SPRAYS IN NOSTRIL( S) ONCE A DAY (MUST BE USED DIRECTED FOR MINIMUM OF 21 DAYS TO PROVIDE ADEQUATE BENEFITS ) NASAL SUSPEND ED 07/28/2025 [id number] 5 LILLIAN ROJAS 2024 3 [facility] GLIPIZIDE 5MG TAB TAKE ONE TABLET BY MOUTH EVERY DAY BEFORE NOON MEAL TAKE 30 MINUTES BEFORE EATING. ORAL ACTIVE 09/30/2024 [id number] 5 LILLIAN ROJAS 2023 90 [facility] LACTOBACILL US ACIDOPHILUS CAP TAKE 1 CAPSULE BY MOUTH TWICE A DAY ORAL 07/27/2024 [id number] 4 ALAINA Jovita L 2023 100 [facility] [place] POTASSIUM 100MG TAB TAKE ONE TABLET BY MOUTH ONCE A DAY ORAL ACTIVE 09/30/2024 [id number] 5 LILLIAN ROJAS 2023 90 [facility] MELOXICAM 15MG TAB TAKE ONE TABLET BY MOUTH ONCE A DAY ORAL ACTIVE 09/30/2024 [id number] 5 LILLIAN ROJAS 2023 90 [facility] METFORMIN HCL 1000MG TAB TAKE ONE-HALF TABLET BY MOUTH TWICE A DAY WITH MEALS TAKE WITH FOOD. AVOID ALCOHOL. DISCONTI NUE BEFORE GETTING XRAY DYE. ORAL ACTIVE 09/30/2024 [id number] 5 LILLIAN ROJAS 2023 90 [facility] METHYLPREDN ISOLONE 4MG TAB DOSEPAK,21 TAKE TABLETS BY MOUTH DIRECTED ORAL ACTIVE ALAINA Jovita Ida 2023 [facility] MONTELUKAST NA 10MG TAB TAKE ONE TABLET BY MOUTH EVERY EVENING ORAL ACTIVE 09/30/2024 [id number] 5 LILLIAN ROJAS 2023 90 [facility] SILDENAFIL CITRATE 100MG TAB TAKE ONE-HALF TABLET BY MOUTH ONE HOUR PRIOR TO SEXUAL ACTIVITY FOR ERECTILE DYSFUNCT ION NEEDED - LIMIT 6 DOSES PER 30 DAYS ORAL SUSPEND ED 05/02/2025 [id number] 5 LILLIAN ROJAS 2023 9 [facility] Allergies, Adverse Reactions, Alerts Combined list of allergies from Department of Defense and Veterans Affairs facilities. It does not include entries that were removed or entered in error. Substance Category Reaction Severity Reaction type Status Date Reported Comments Source No Known Allergies Drug allergy (disorder) active 03/23/2007 Robert FLETCHER, Asa Parker [place] Results Combined list of recent chemistry, hematology and other laboratory results from Department of Defense and Veterans Affairs, ranging from 15 months to all on record, depending upon the facility. Order Name Results Value Reference Range Date Interpretation Specimen Comments Source COMPREHENSI VE METABOLIC PANEL CREATININE [MASS/VOLUME ] IN SERUM OR PLASMA 0.85 mg/dL 0.7 - 1.3 09/29 Specimen Type: PLASMA Comment: No hemolysis noted. Ordering Provider: Latisha ROJAS Report Released Date/Time: Sep 30, 2023 08:46 AM Reporting Lab: [facility] [address] [place] [address] Performing Lab: [facility] [address] [place] [address] [facility] COMPREHENSI VE METABOLIC PANEL UREA NITROGEN [MASS/VOLUME ] IN SERUM OR PLASMA 10.9 mg/dL 9.0 - 25.0 09/29 Specimen Type: PLASMA Comment: No hemolysis noted. Ordering Provider: Latisha ROJAS Report Released Date/Time: Sep 30, 2023 08:46 AM Reporting Lab: [facility] [address] [place] [address] Performing Lab: [facility] [address] [place] [address] [facility] COMPREHENSI VE METABOLIC PANEL GLUCOSE [MASS/VOLUME ] IN SERUM OR PLASMA 226 mg/dL 72 - 99 09/29 H Specimen Type: PLASMA Comment: No hemolysis noted. Ordering Provider: Latisha ROJAS Report Released Date/Time: Sep 30, 2023 08:46 AM Reporting Lab: [facility] [address] [place] [address] Performing Lab: [address] [facility] COMPREHENSI VE METABOLIC PANEL SODIUM [MOLES/VOLUM E] IN SERUM OR PLASMA 139 meq/L 136 - 145 09/29 Specimen Type: PLASMA Comment: No hemolysis noted. Ordering Provider: Latisha ROJAS Report Released Date/Time: Sep 30, 2023 08:46 AM Reporting Lab: [facility] [address] [place] [phone] Performing Lab: [facility] [address] [place] [phone] [facility] COMPREHENSI VE METABOLIC PANEL POTASSIUM [MOLES/VOLUM E] IN SERUM OR PLASMA 3.9 meq/L 3.5 - 5 09/29 Specimen Type: PLASMA Comment: No hemolysis noted. Ordering Provider: Latisha ROJAS Report Released Date/Time: Sep 30, 2023 08:46 AM Reporting Lab: [facility] [address] [place] [phone] Performing Lab: [facility] [address] [place] [phone] [facility] COMPREHENSI VE METABOLIC PANEL CHLORIDE [MOLES/VOLUM E] IN SERUM OR PLASMA 105 meq/L 98 - 107 09/29 Specimen Type: PLASMA Comment: No hemolysis noted. Ordering Provider: Latisha ROJAS Report Released Date/Time: Sep 30, 2023 08:46 AM Reporting Lab: [facility] [address] [place] [phone] Performing Lab: [facility] [address] [place] [phone] [facility] COMPREHENSI VE METABOLIC PANEL CARBON DIOXIDE, TOTAL [MOLES/VOLUM E] IN SERUM OR PLASMA 24 meq/L 22 - 31 09/29 Specimen Type: PLASMA Comment: No hemolysis noted. Ordering Provider: Latisha ROJAS Report Released Date/Time: Sep 30, 2023 08:46 AM Reporting Lab: [facility] [address] [place] [phone] Performing Lab: [facility] [address] [place] [phone] [facility] COMPREHENSI VE METABOLIC PANEL CALCIUM [MASS/VOLUME ] IN SERUM OR PLASMA 9.7 mg/dL 8.4 - 10.4 09/29 Specimen Type: PLASMA Comment: No hemolysis noted. Ordering Provider: Latisha ROJAS Report Released Date/Time: Sep 30, 2023 08:46 AM Reporting Lab: [facility] [address] [place] [phone] Performing Lab: [facility] [address] [place] [phone] [facility] COMPREHENSI VE METABOLIC PANEL PROTEIN [MASS/VOLUME ] IN SERUM OR PLASMA 7.5 g/dL 6 - 8.6 09/29 Specimen Type: PLASMA Comment: No hemolysis noted. Ordering Provider: Latisha ROJAS Report Released Date/Time: Sep 30, 2023 08:46 AM Reporting Lab: [facility] [address] [place], [place] [phone] Performing Lab: [address] [phone] [facility] COMPREHENSI VE METABOLIC PANEL ALBUMIN [MASS/VOLUME ] IN SERUM OR PLASMA 4.3 g/dL 3.4 - 5 09/29 Specimen Type: PLASMA Comment: No hemolysis noted. Ordering Provider: Latisha ROJAS Report Released Date/Time: Sep 30, 2023 08:46 AM Reporting Lab: [facility] [address] [place], [place] [phone] Performing Lab: [facility] [address] [place] [phone] [facility] COMPREHENSI VE METABOLIC PANEL BILIRUBIN.TO RANDY [MASS/VOLUME ] IN SERUM OR PLASMA 0.6 mg/dL 0.2 - 1.2 09/29 Specimen Type: PLASMA Comment: No hemolysis noted. Ordering Provider: Latisha ROJAS Report Released Date/Time: Sep 30, 2023 08:46 AM Reporting Lab: [facility] [address] [place] [phone] Performing Lab: [facility] [address] [place] [phone] [facility] COMPREHENSI VE METABOLIC PANEL ALKALINE PHOSPHATASE [ENZYMATIC ACTIVITY/VOL UME] IN SERUM OR PLASMA 61 U/L 40 - 150 09/29 Specimen Type: PLASMA Comment: No hemolysis noted. Ordering Provider: Latisha ROJAS Report Released Date/Time: Sep 30, 2023 08:46 AM Reporting Lab: [facility] [address] [place], [place] [phone] Performing Lab: [address] [phone] [place] [address] [facility] COMPREHENSI VE METABOLIC PANEL ASPARTATE AMINOTRANSFE RASE [ENZYMATIC ACTIVITY/VOL UME] IN SERUM OR PLASMA 24 U/L 5 - 34 09/29 Specimen Type: PLASMA Comment: No hemolysis noted. Ordering Provider: Latisha ROJAS Report Released Date/Time: Sep 30, 2023 08:46 AM Reporting Lab: [place] [address] Performing Lab: [address] [facility] COMPREHENSI VE METABOLIC PANEL ALANINE AMINOTRANSFE RASE [ENZYMATIC ACTIVITY/VOL UME] IN SERUM OR PLASMA 35 U/L 8 - 40 09/29 Specimen Type: PLASMA Comment: No hemolysis noted. Ordering Provider: Latisha ROJAS Report Released Date/Time: Sep 30, 2023 08:46 AM Reporting Lab: [facility] [address] [place], [place] [phone] Performing Lab: [place] [phone] [facility] COMPREHENSI VE METABOLIC PANEL GLOMERULAR FILTRATION RATE/1.73 SQ M.PREDICTED [VOLUME RATE/AREA] IN SERUM, PLASMA OR BLOOD BY CREATININE-B ASED FORMULA (CKD-EPI 2020) 109.9 60 09/29 Specimen Type: PLASMA Comment: No hemolysis noted. Ordering Provider: Latisha ROJAS Report Released Date/Time: Sep 30, 2023 08:46 AM Reporting Lab: [facility] [address] [place] [phone] Performing Lab: [address] [phone] [place] [address] [facility] LIPID PANEL (STL) CHOLESTEROL [MASS/VOLUME ] IN SERUM OR PLASMA 195 mg/dL 0 - 200 09/29 Specimen Type: PLASMA Comment: No hemolysis noted. Ordering Provider: Latisha ROJAS Report Released Date/Time: Sep 30, 2023 08:46 AM Reporting Lab: [facility] [address] [place], [place] [phone] Performing Lab: [place] [phone] [facility] LIPID PANEL (STL) TRIGLYCERIDE [MASS/VOLUME ] IN SERUM OR PLASMA 232 mg/dL 0 - 150 09/29 H Specimen Type: PLASMA Comment: No hemolysis noted. Ordering Provider: Latisha ROJAS Report Released Date/Time: Sep 30, 2023 08:46 AM Reporting Lab: [place] [address] Performing Lab: [address] [facility] LIPID PANEL (STL) CHOLESTEROL IN LDL [MASS/VOLUME ] IN SERUM OR PLASMA BY CALCULATION 116 mg/dL 09/29 Specimen Type: PLASMA Comment: No hemolysis noted. Ordering Provider: Latisha ROJAS Report Released Date/Time: Sep 30, 2023 08:46 AM Reporting Lab: [place] [address] Performing Lab: [place] [phone] [place] [address] [facility] LIPID PANEL (STL) CHOLESTEROL IN HDL [MASS/VOLUME ] IN SERUM OR PLASMA 33 mg/dL 40 09/29 L Specimen Type: PLASMA Comment: No hemolysis noted. Ordering Provider: Latisha ROJAS Report Released Date/Time: Sep 30, 2023 08:46 AM Reporting Lab: [address] Performing Lab: [place] [phone] [facility] CBC LEUKOCYTES [#/VOLUME] IN BLOOD BY AUTOMATED COUNT 8.2 10*3/u L 3.6 - 11.2 09/29 Specimen Type: BLOOD No comment entered. Ordering Provider: Latisha ROJAS Report Released Date/Time: Sep 30, 2023 08:46 AM Reporting Lab: [facility] [address] [place] [address] Performing Lab: [place] [phone] [facility] CBC ERYTHROCYTES [#/VOLUME] IN BLOOD BY AUTOMATED COUNT 5.46 10*6/u L 4.10 - 5.70 09/29 Specimen Type: BLOOD No comment entered. Ordering Provider: Latisha ROJAS Report Released Date/Time: Sep 30, 2023 08:46 AM Reporting Lab: [place] [address] Performing Lab: [address] [facility] CBC HEMOGLOBIN [MASS/VOLUME ] IN BLOOD 16.2 g/dL 13.1 - 16.8 09/29 Specimen Type: BLOOD No comment entered. Ordering Provider: Latisha ROJAS Report Released Date/Time: Sep 30, 2023 08:46 AM Reporting Lab: [place] [address] Performing Lab: [address] [facility] CBC HEMATOCRIT [VOLUME FRACTION] OF BLOOD 47.6 38.2 - 48.4 09/29 Specimen Type: BLOOD No comment entered. Ordering Provider: Latisha ROJAS Report Released Date/Time: Sep 30, 2023 08:46 AM Reporting Lab: [place] [address] Performing Lab: [address] [facility] CBC MCV [ENTITIC VOLUME] BY AUTOMATED COUNT 87.2 fL 80.0 - 100.0 09/29 Specimen Type: BLOOD No comment entered. Ordering Provider: Latisha ROJAS Report Released Date/Time: Sep 30, 2023 08:46 AM Reporting Lab: [facility] [address] [place] [address] Performing Lab: [facility] [address] [place] [address] [facility] CBC MCH [ENTITIC MASS] BY AUTOMATED COUNT 29.7 pg 27.0 - 34.0 09/29 Specimen Type: BLOOD No comment entered. Ordering Provider: Latisha ROJAS Report Released Date/Time: Sep 30, 2023 08:46 AM Reporting Lab: [facility] [address] [place] [address] Performing Lab: [address] [facility] CBC MCHC [MASS/VOLUME ] BY AUTOMATED COUNT 34.0 g/dL 33.0 - 36.0 09/29 Specimen Type: BLOOD No comment entered. Ordering Provider: Latisha ROJAS Report Released Date/Time: Sep 30, 2023 08:46 AM Reporting Lab: [facility] [address] [place] [address] Performing Lab: [facility] [address] [place] [address] [facility] CBC PLATELETS [#/VOLUME] IN BLOOD BY AUTOMATED COUNT 225 10*3/u L 150 - 400 09/29 Specimen Type: BLOOD No comment entered. Ordering Provider: Latisha ROJAS Report Released Date/Time: Sep 30, 2023 08:46 AM Reporting Lab: [facility] [address] [place] [address] Performing Lab: [facility] [address] [place] [address] [facility] CBC PLATELET MEAN VOLUME [ENTITIC VOLUME] IN BLOOD BY AUTOMATED COUNT 11.3 fL 7.5 - 11.2 09/29 H Specimen Type: BLOOD No comment entered. Ordering Provider: Latisha ROJAS Report Released Date/Time: Sep 30, 2023 08:46 AM Reporting Lab: [facility] [address] [place] [phone] Performing Lab: [facility] [address] [place] [phone] [facility] CBC ERYTHROCYTE DISTRIBUTION WIDTH [RATIO] BY AUTOMATED COUNT 12.9 11.8 - 15.1 09/29 Specimen Type: BLOOD No comment entered. Ordering Provider: Latisha ROJAS Report Released Date/Time: Sep 30, 2023 08:46 AM Reporting Lab: [facility] [address] [place] [phone] Performing Lab: [facility] [address] [place] [phone] [facility] CBC LYMPHOCYTES/ 100 LEUKOCYTES IN BLOOD BY AUTOMATED COUNT 21 09/29 Specimen Type: BLOOD No comment entered. Ordering Provider: Latisha ROJAS Report Released Date/Time: Sep 30, 2023 08:46 AM Reporting Lab: [facility] [address] [facility] [phone] Performing Lab: [facility] [address] [place] [phone] [facility] CBC MONOCYTES/10 0 LEUKOCYTES IN BLOOD BY AUTOMATED COUNT 10 09/29 Specimen Type: BLOOD No comment entered. Ordering Provider: Latisha ROJAS Report Released Date/Time: Sep 30, 2023 08:46 AM Reporting Lab: [facility] [address] [place] [phone] Performing Lab: [facility] [address] [place] [phone] [facility] CBC NEUTROPHILS/ 100 LEUKOCYTES IN BLOOD BY AUTOMATED COUNT 65 09/29 Specimen Type: BLOOD No comment entered. Ordering Provider: Latisha ROJAS Report Released Date/Time: Sep 30, 2023 08:46 AM Reporting Lab: [facility] [address] [place] [phone] Performing Lab: [facility] [address] [phone] [place] [address] [facility] CBC EOSINOPHILS/ 100 LEUKOCYTES IN BLOOD BY AUTOMATED COUNT 2 09/29 Specimen Type: BLOOD No comment entered. Ordering Provider: Latisha ROJAS Report Released Date/Time: Sep 30, 2023 08:46 AM Reporting Lab: [facility] [address] [place] [address] Performing Lab: [address] [facility] CBC BASOPHILS/10 0 LEUKOCYTES IN BLOOD BY AUTOMATED COUNT 1 09/29 Specimen Type: BLOOD No comment entered. Ordering Provider: Latisha ROJAS Report Released Date/Time: Sep 30, 2023 08:46 AM Reporting Lab: [place] [address] Performing Lab: [address] [facility] CBC LYMPHOCYTES [#/VOLUME] IN BLOOD BY AUTOMATED COUNT 1.75 10*3/u L 0.77 - 4.50 09/29 Specimen Type: BLOOD No comment entered. Ordering Provider: Latisha ROJAS Report Released Date/Time: Sep 30, 2023 08:46 AM Reporting Lab: [facility] [address] [place] [address] Performing Lab: [address] [facility] CBC MONOCYTES [#/VOLUME] IN BLOOD BY AUTOMATED COUNT 0.84 10*3/u L 0.19 - 0.80 09/29 H Specimen Type: BLOOD No comment entered. Ordering Provider: Latisha ROJAS Report Released Date/Time: Sep 30, 2023 08:46 AM Reporting Lab: [facility] [address] [place] [address] Performing Lab: [place] [phone] [facility] CBC NEUTROPHILS [#/VOLUME] IN BLOOD BY AUTOMATED COUNT 5.34 10*3/u L 2.10 - 8.00 09/29 Specimen Type: BLOOD No comment entered. Ordering Provider: Latisha ROJAS Report Released Date/Time: Sep 30, 2023 08:46 AM Reporting Lab: [facility] [address] [place] [address] Performing Lab: [facility] [address] [place] [phone] [facility] CBC EOSINOPHILS [#/VOLUME] IN BLOOD BY AUTOMATED COUNT 0.20 10*3/u L 0.00 - 0.60 09/29 Specimen Type: BLOOD No comment entered. Ordering Provider: Latisha ROJAS Report Released Date/Time: Sep 30, 2023 08:46 AM Reporting Lab: [place] [address] Performing Lab: [address] [facility] CBC BASOPHILS [#/VOLUME] IN BLOOD BY AUTOMATED COUNT 0.05 10*3/u L 0.00 - 0.20 09/29 Specimen Type: BLOOD No comment entered. Ordering Provider: Latisha ROJAS Report Released Date/Time: Sep 30, 2023 08:46 AM Reporting Lab: [facility] [address] [place] [address] Performing Lab: [address] [facility] HGA1C HEMOGLOBIN A1C/HEMOGLOB IN.TOTAL IN BLOOD 8.0 4.0 - 6.0 09/29 H Specimen Type: BLOOD No comment entered. Ordering Provider: Latisha ROJAS Report Released Date/Time: Sep 30, 2023 08:46 AM Reporting Lab: [place] [address] Performing Lab: [address] [facility] VITAMIN D, 25-HYDROXY 25-HYDROXYVI TAMIN D3 [MASS/VOLUME ] IN SERUM OR PLASMA 24.0 ng/mL 30 - 96 09/29 L Specimen Type: SERUM No comment entered. Ordering Provider: Latisha ROJAS Report Released Date/Time: Sep 30, 2023 08:46 AM Reporting Lab: [facility] [address] [place] [phone] Performing Lab: [facility] [address] [place] [phone] [facility] TSH W/ REFLEX FT4 (STL) THYROTROPIN [UNITS/VOLUM E] IN SERUM OR PLASMA 1.120 u[IU]/ mL 0.47 - 5 09/29 Specimen Type: PLASMA No comment entered. Ordering Provider: Latisha ROJAS Report Released Date/Time: Sep 30, 2023 08:46 AM Reporting Lab: [facility] [address] [place] [id number] Performing Lab: [address] [id number] [place] [address] [facility]OC Vital Signs Combined list of inpatient and outpatient Vital Signs from Department of Defense and Veterans Affairs, ranging from 12 months to all on record, depending upon the facility. Vital Sign Value Date Comments Source SYSTOLIC BLOOD PRESSURE 173 05/15/2024 09:31:57 [facility] DIASTOLIC BLOOD PRESSURE 107 05/15/2024 09:31:57 [facility] PULSE OXIMETRY 97 05/15/2024 09:31:57 [facility] TEMPERATURE 98.5 05/15/2024 09:31:57 [facility] PULSE 92 05/15/2024 09:31:57 [facility] RESPIRATION 20 05/15/2024 09:31:57 [facility] SYSTOLIC BLOOD PRESSURE 168 05/01/2024 14:30:11 [facility] DIASTOLIC BLOOD PRESSURE 92 05/01/2024 14:30:11 [facility] PULSE OXIMETRY 96 05/01/2024 14:30:11 [facility] WEIGHT 259 05/01/2024 14:30:11 [facility] BMI 41 kg/m2 05/01/2024 14:30:11 [facility] PAIN 8 05/01/2024 14:30:11 [facility] TEMPERATURE 98.1 05/01/2024 14:30:11 [facility] PULSE 95 05/01/2024 14:30:11 [facility] RESPIRATION 20 05/01/2024 14:30:11 [facility] SYSTOLIC BLOOD PRESSURE 176 01/05/2024 14:15:47 [facility] DIASTOLIC BLOOD PRESSURE 95 01/05/2024 14:15:47 [facility] PULSE OXIMETRY 96 01/05/2024 14:15:47 [facility] WEIGHT 259.9 01/05/2024 14:15:47 [facility] BMI 41 kg/m2 01/05/2024 14:15:47 [facility] PAIN 7 01/05/2024 14:15:47 [facility] TEMPERATURE 99.4 01/05/2024 14:15:47 [facility] PULSE 101 01/05/2024 14:15:47 [facility] RESPIRATION 20 01/05/2024 14:15:47 [facility] SYSTOLIC BLOOD PRESSURE 147 12/28/2023 15:07:00 [facility] DIASTOLIC BLOOD PRESSURE 90 12/28/2023 15:07:00 [facility] PULSE OXIMETRY 96 12/28/2023 15:07:00 [facility] WEIGHT 266 12/28/2023 15:07:00 [facility] BMI 42 kg/m2 12/28/2023 15:07:00 [facility] PAIN 7 12/28/2023 15:07:00 [facility] TEMPERATURE 98 12/28/2023 15:07:00 [facility] PULSE 96 12/28/2023 15:07:00 [facility] RESPIRATION 18 12/28/2023 15:07:00 [facility] SYSTOLIC BLOOD PRESSURE 143 09/30/2023 08:33:27 [facility] DIASTOLIC BLOOD PRESSURE 90 09/30/2023 08:33:27 [facility] PULSE OXIMETRY 97 09/30/2023 08:33:27 [facility] WEIGHT 263 09/30/2023 08:33:27 [facility] BMI 41 kg/m2 09/30/2023 08:33:27 [facility] PAIN 8 09/30/2023 08:33:27 [facility] HEIGHT 67 09/30/2023 08:33:27 [facility] TEMPERATURE 97.7 09/30/2023 08:33:27 [facility] PULSE 79 09/30/2023 08:33:27 [facility] RESPIRATION 18 09/30/2023 08:33:27 [facility] [place] [facility] Encounters Combined list of: 1) Encounters from Department of Veterans Affairs facilities going backup to the last 18 months, not all VA inpatient encounters are included; 2) Encounters from the Department of Defense facilities going backup to 280 months. Location Location Details Encounter Type Encounter Number Reason For Visit Attending Provider ADM Date DC Date Status Disposition Source [place] [id number] knee injury BILL MEJIA III 05/12 Released with Work/Duty Limitations [place] [facility] [id number] PT NEEDS REFERRA L TO UROLOGY BILL MEJIA III Brenda 10/29 [place]o Limitations [place] [id number] fever/s tiff neck/soto /earach e/dizzy BERNARDO CARLOS 12/04 Immediate Ref[place] [place] OUTPATIENT [id number] hearing exam ROGERIO BRAUN 03/07 Released w[place] Limitations [place] [place] [facility] [place] [facility] [id number] PREDEPL OYMENT MEDICAL SCREENI NG DELETED_HA RUPESH AN H 03/08 [place] [place] [facility] [place] OUT[place] [id number] SRP knee pain, LBP Groin pain, h/a l shoulde r pain kidney stones audiogr am CASSIDY MUNOZ H 03/08 [place] [place] [facility] [place] [facility] [place] OUTPATIENT [id number] bilater al knee pain, LBP, groin pain h/a/ shoulde r pain audiogr am kidney st SHAYNA MONAHAN S 03/14 [place] [facility] [id number] SRP f/u MRI bilater al knees TANIYASHAYNA S 03/22 [place] [facility] [id number] joint pain, localiz ed in the knee APRIL GUSMAN 03/27 Released with Work/Duty Limitations [place] [facility] OFFICE O/P NEW MOD 45 MIN [id number] Diagnos is: ICD-10- CM R73.03 Prediab torres ROJAS,Latisha ODD 09/29 [facility] Outpatient Encounter [id number] 10/05 [facility] OFFICE O/P EST LOW 20 MIN [id number] Diagnos is: ICD-10- CM Z02.9 Encount er for adminis trative examina tions, unspeci braydon ROJAS,T ODD 10/09 [facility] Outpatient Encounter [id number] 12/20 [facility] Outpatient Encounter [id number] DOMINICPETE Gomez 12/21 [facility] OFF/OP EST MAY X REQ PHY/QHP [id number] Diagnos is: ICD-10- CM M25.569 Pain in unspeci fied knee PETE ALFARO 12/25 [facility] Outpatient Encounter [id number] MIKE RASCON 12/26 [facility] OFFICE O/P EST LOW 20 MIN [id number] Diagnos is: ICD-10- CM M54.50 Low back pain, unspeci fied SHAN,CH IDIMMA N 12/27 [facility] Outpatient Encounter [id number] Yasmeen TOLEDO 01/02 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 Yasmeen TOLEDO JYOTSNAJovita 03/30 [facility] OFFICE O/P EST LOW 20 MIN [id number] Diagnos is: ICD-10- CM N52.9 Male erectil e dysfunc tion, unspeci fied ROJAS,T ODD 05/01 [facility] EST MAY X REQ PHY/QHP [id number] Diagnos is: ICD-10- CM I10 Essenti al (primar y) hyperte nsion KENNEY ART JANNET A 05/15 [facility] Outpatient Encounter [id number] PETE ALFARO 06/07 [facility] Outpatient Encounter [id number] [facility] 06/07 [facility] Outpatient Encounter [id number] PETE ALFARO 06/07 [facility] OFFICE O/P EST LOW 20 MIN [id number] Diagnos is: ICD-10- CM J01.90 Acute sinusit is, unspeci fied SEB FIGUEROA 06/07 [facility] Outpatient Encounter [id number] KENNEY ART JANNET A 07/25 [facility] Outpatient Encounter [id number] KAELYNKENNEY JANNET A 07/25 [facility] Encounter [id number] KENNEY ART 08/01 [facility] Procedures Combined list of: 1) Procedures from Department of Veterans Affairs facilities going back up to thelast 18 months, not all [place] non-surgical procedures are included; 2) All procedures from the Department of Defense facilities. Procedure Procedure Type Code Date Perfomer Comments Sourc e SELF-CARE/HOME MANAGMENT TRAIN (EG,ACT OF DAILY LIVING (ADL) &COMPENSAT TRAIN,MEAL PREPARATION,SAFETY PROCS,AND INSTRUCT IN USE OF ASST TECHNOLOGY DEV/ADPT EQUIP) DIR ONE-ON-ONE CONT,EA 15 MINUTES 7 [facility] IMMUNIZATION ADMINISTRATION (INCLUDES PERCUTANEOUS, INTRADERMAL, SUBCUTANEOUS, OR INTRAMUSCULAR INJECTIONS); 1 VACCINE (SINGLE OR COMBINATION VACCINE/TOXOID) 7 [facility] AUDIOMETRIC TESTING OF GROUPS 7 DoD NONINVASIVE EAR OR PULSE OXIMETRY FOR OXYGEN SATURATION; SINGLE DETERMINATION 5 DoD NONINVASIVE EAR OR PULSE OXIMETRY FOR OXYGEN SATURATION; SINGLE DETERMINATION 5 DoD CRUTCH FOREARM, INCLUDES CRUTCHES OF VARIOUS MATERIALS, ADJUSTABLE OR FIXED, EACH, WITH TIP AND HANDGRIPS 5 DoD PURE TONE AUDIOMETRY (THRESHOLD); AIR ONLY 5 DoD TYPHOID VACCINE, ACETONE-KILLED, DRIED (AKD), FOR SUBCUTANEOUS USE (U.S. ) 5 [facility] RANGE OF MOTION MEASUREMENTS AND REPORT (SEPARATE PROCEDURE); EACH EXTREMITY (EXCLUDING HAND) OR EACH TRUNK SECTION (SPINE) 4 DoD INDIVIDUAL PSYCHOTHERAPY, INSIGHT ORIENTED, BEHAVIOR MODIFYING AND/OR SUPPORTIVE, IN AN OFFICE OR OUTPATIENT FACILITY, APPROXIMATELY 20 TO 30 MINUTES [id number] WITH THE PATIENT 4 DoD MEDICAL NUTRITION THERAPY; GROUP (2 OR MORE INDIVIDUAL(S)), EACH 30 MINUTES 4 [facility] MEDICAL NUTRITION THERAPY; GROUP (2 OR MORE INDIVIDUAL(S)), EACH 30 MINUTES 4 DoD HANDLING AND/OR CONVEYANCE OF SPECIMEN FOR TRANSFER FROM THE OFFICE TO A LABORATORY 4 [facility] INDIVIDUAL PSYCHOTHERAPY, INSIGHT ORIENTED, BEHAVIOR MODIFYING AND/OR SUPPORTIVE, IN AN OFFICE OR OUTPATIENT FACILITY, APPROXIMATELY 20 TO 30 MINUTES [id number] WITH THE PATIENT 4 DoD INJECTION, CEFAZOLIN SODIUM, 500 MG 3 DoD PURE TONE AUDIOMETRY (THRESHOLD); AIR ONLY 3 [facility] Physical Therapy Service Evaluation Physical Therapy Service Evaluation [id number] APRIL GUSMAN [facility] Patient Training And Self-Care Skills Patient Training And Self-Care Skills [id number] 7 APRIL GUSMAN [facility] Special Physician Services Analysis Of Computerized Data Special Physician Services Analysis Of Computerized Data 34476 7 CHANDA BRAUN Physician Supervised Services Provision Of Special Supplies Physician Supervised Services Provision Of Special Supplies 81514 7 CHANDA BRAUN Physician Supervised Group Educational Services 7 CHANDA BRAUN Threshold Audiogram (Pure Tone) Threshold Audiogram (Pure Tone) 47468 7 CHANDA BRAUN Ear Protector Attenuation Measurements Ear Protector Attenuation Measurements 59109 7 CHANDA BRAUN Audiometry Group Testing Audiometry Group Testing 78326 7 CHANDA BRAUN Immunization Administration By Injection, One Vaccine Immunization Administration By Injection, One Vaccine 07586 7 RUPESH DIAZ [facility] Hepatitis B Vaccine (Active) Adult Dosage 7 RUPESH DIAZ [facility] Venipuncture Venipuncture 00585 7 RUPESH DIAZ [facility] Range Of Motion Evaluation Of Extremity Range Of Motion Evaluation Of Extremity 64005 4 ROBERTO IIIBILL [facility] Social History Combined list of available smoking, tobacco, and other social history from Department of Defense and Veterans Affairs facilities. Social History Type Response Date Comment Sourc e Tobacco smoking status VTIS VA-TOBACCO NEVER USED 09/30/2023 [facility] This section is an empty social history section. [facility] Plan of Care List of future care activities from Department of Veterans Affairs facilities. Additional future care activities may be listed in the Assessment and Plan section. Date/Time Care Activity Care Activity Detail Facili ty 09/28/2024 AMBULATORY - MEDICINE AMBULATORY - MEDICI [facility]
--- OUTSIDE RECORDS SUMMARY | 2024-08-06 19:08 | XMS_ITS | Clinical Summary ---
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 Gender Identity Not on file Sexual Orientation Not on file Plan of Treatment Health Maintenance Due Date Last Done Comments PNEUMOCOCCAL VACCINE 0-64 YEARS (1 of 2 - PCV) 1985 DIABETES ANNUAL RETINAL EXAM 1997 DIABETES MICROALBUMIN ANNUAL SCREEN 1997 LDL CHOLESTEROL ANNUAL 1997 DTAP/TDAP/TD VACCINES (1 - Tdap) 1998 HEPATITIS B VACCINES (1 of 3 - 19+ 3-dose series) 1998 DIABETES HBA1C Q 6 MONTHS 11/29/2023 2023 INFLUENZA VACCINE (#1) 2024 FIT-DNA Q 3 years 2024 FIT/FOBT Q 1 year 2024 Flex Sig/CT Colonography Q 5 years 2024 DIABETES ANNUAL FOOT EXAM 06/03/2024 06/03/2023 COLORECTAL SCREENING 06/03/2025 06/03/2015, 06/03/2015 Colorectal Cancer Screening 06/03/2025 HPV VACCINES Aged Out No longer eligi ble based on patient's age to complete this topic Insurance [employer]
--- OUTSIDE RECORDS SUMMARY | 2024-08-06 19:08 | XMS_ITS | Continuity of Care Document ---
Author Organization [employer] Address [address] [place] [address] Phone Care Team Providers Care Manufacturing Quality Engineer Name Role Phone Yandy Bryson MD Unavailable Unavailable Allergies, Adverse Reactions, Alerts Substance Reaction Status Criticality No Known Allergies Active No Inform ation Medications Medication Instructions Dosage Effective Dates (start - stop) Status Comments losartan 100 mg tablet take 1 tablet by oral route every day 100 MG - Active allopurinol 100 mg tablet take 1 tablet by oral route every day 100 MG - Active tramadol 50 mg tablet take 1 tablet by oral route every 8 hours as needed 50 MG - Active hydrochlorothiazide 25 mg tablet take 1 tablet by oral route every day 25 MG - No Longer Active Vicodin 5 mg-300 mg tablet take 1 tablet by oral route every 4 - 6 hours as needed for pain - No Longer Active Procedures Procedure Date OFFICE/OUTPATIENT VISIT, EST OFFICE/OUTPATIENT VISIT, EST Ketorolac tromethamine inj THER/PROPH/DIAG INJ, SC/IM Methylprednisolone 80 MG inj THER/PROPH/DIAG INJ, SC/IM Advance Directives Directive Yes / No Effective Date File Name No Information Encounters Encounter Description Practice Location Reason(s) For Visit Diagnoses Date Provider Providers Copied on Encounter OFFICE/OUTPAT IENT VISIT, EST [facility] [employer] [facility], [address] [place] [address], [address], tel:[phone] [place] EMPLOYEE PHYSICAL (chief complaint) Pre-employmen t examination Braydon Kebede. [address] [place] [address], [facility], . tel: [phone] OFFICE/OUTPAT IENT VISIT, EST [facility], [address] [place] [address], [facility], [phone] [place] L KNEE SWOLLEN/AMY N OLD INJURY (chief complaint) Knee joint effusion Pallavi Josselyn. [address] [place] [address], [facility], [place]. tel: [phone] Family History Family Member Type Diagnosis Age At Onset No Information Payers Payer name Insurance type Covered democrat ID Authoriza tion(s) No Information Social History Type Description Quantity Date Captured Comments Alcohol Use Details beer Caffeine Use Details coffee 2 cups per day Tobacco Use Status Never smoked tobacco 2018 Smoking Status Never smoker Non-Smoking Tobacco Use Details : No Details Available : No Details Available Sex Male Vital Signs Date / Time: Height Weight BMI Pulse Rate Blood Pressure Temperature Respiratory Rate Body Surface Area Head Circumference Head Circ. Percentile Wt./Tanvir. Percentile BMI percentile Pulse Ox Inhaled Ox 12:38 PM 67.75 in 122.470 kg (270.00 lbs) 41.3 5 kg/m eter (2) 99 /min 142/90 mm[Hg] 99.70 F 18 /min 96 % 21 % Chief Complaint And Reason For Visit From encounter dated '10/31/2018 12:05'. EMPLOYEE PHYSICAL (chief complaint). Description: Pt presents for an employee physical. 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 The symptoms are reported as being severe. The symptoms occur constantly. The location is left knee. 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 He was in here 2 years ago with the same problem. Swelling and pain. (Chronic pain with intermittent swelling and increased pain. No new injury.) Functional Status Date Functional Assessmen t No Information Instructions Date Instruction Additional Infor mation CLEARED FOR EMPLOYMENT Related t o Pre-employment examination Diclofenac BID for 7-10 days Rel ated to Knee joint effusion Continue RICE therapy Related to Knee joint effusion Assessments Type Assessment Date assessment Pre-employment examination Mental Status Date Cognitive Assessment Orientation - [place] ed to time, place, person, situation.Normal Orientation Patient Care Teams Name Effective Dates (start - stop) Status Members No Information
--- OUTSIDE RECORDS SUMMARY | 2024-08-06 19:11 | XMS_ITS | Continuity of Care Document ---
Author Organization [employer] Address [address] [place] [address] Phone Care Team Providers Care Director Labor Standards Name Role Phone Yandy Bryson MD Unavailable [...] on Encounter OFFICE/OUTPAT IENT VISIT, EST [facility] [employer] [facility], [address] [place] [address], [address], tel:[phone] [place] EMPLOYEE PHYSICAL (chief complaint) Pre-employmen t examination Braydon Kebede. [address] [place] [address], [facility], . tel: [phone] OFFICE/OUTPAT IENT VISIT, EST [facility], [address] [place] [address], [facility], [phone] [place] L KNEE SWOLLEN/AMY N OLD INJURY (chief complaint) Knee joint effusion Pallavi Josselyn. [address] [place] [address], [facility], [place]. tel: [phone] Family History Family Member Type Diagnosis Age At Onset No Information Payers Payer name Insurance type Covered constitution party ID Authoriza tion(s) No Information Social History [...] physical. 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
--- OUTSIDE RECORDS SUMMARY | 2024-08-06 19:11 | XMS_ITS | Continuity of Care Document ---
Author Name [facility] Organization [facility] Care Team Providers Care Casino Worker Name Role Phone [facility] Unavailable Unavailable Problems Combined list of problems from Department of Defense and Veterans Affairs facilities. It does not include entries that were removed or entered in error. Problem Status Onset Date Problem Type Date of Resolution Comments Source visit for: physical medical evaluation board (MEB) Active Condition [facility] Other Physical Therapy Active Condition DoD Patient Education Inactive Condition DoD groin (inguinal) pain right side Inactive Condition US of testic le with normal blood flow. recommend repeat US of testicle in 2-3 months DoD joint pain, localized in the knee Active Condition DoD lumbago Active Condition [facility] routine pre-employment screening examination Active Condition [facility] visit for: ears / hearing exam Active Condition DoD Need For Vaccination Hepatitis B Inactive Condition [facility] visit for: services physical Inactive Condition Pending [facility] evaluation for 1. Groiin pain 2. Headaches 3. Lower back pain 4. Bilateral knee pain DoD headache Active Condition [facility] Patient Education - Procreative Management Inactive Condition DoD acute meniscal tear lateral Active Condition suspicion for posteolateral DoD Allergic rhinitis Active Condition [facility] Chronic low back pain Active Condition [facility] Chronic post-traumatic stress disorder Active Condition [facility] Chronic sinusitis Active Condition [facility] Erectile dysfunction Active Condition [facility] Essential hypertension Active Condition [facility] Exposure to Potentially Hazardous Substance ([facility] [id number]) Active Condition [facility] Hyperlipidemia Active Condition [facility] Mixed anxiety and depressive disorder Active Condition [facility] Obesity Active Condition [facility] Pain of bilateral knee joints Active Condition [facility] Prediabetes Active Condition [facility] Diagnosis: ICD-10-CM J01.90 Acute sinusitis, unspecified Active Diagnosis [facility] Diagnosis: ICD-10-CM I10 Essential (primary) hypertension Active Diagnosis [facility] Diagnosis: ICD-10-CM N52.9 Male erectile dysfunction, unspecified Active Diagnosis [facility] Diagnosis: ICD-10-CM Z91.82 Personal history of deployment Active Diagnosis [facility] Diagnosis: ICD-10-CM Z02.9 Encounter for administrative examinations, unspecified Active Diagnosis [facility] Diagnosis: ICD-10-CM M54.50 Low back pain, unspecified Active Diagnosis [facility] Diagnosis: ICD-10-CM M25.569 Pain in unspecified knee Active Diagnosis [facility] Diagnosis: ICD-10-CM R73.03 Prediabetes Active Diagnosis [facility] Medications Combined list of outpatient medications [...] . RESPIR ATORY (INHAL ATION) ACTIVE 10/10/2024 [id number] LILLIAN ROJAS 2023 3 [facility] AMLODIPINE BESYLATE 10MG TAB TAKE ONE TABLET BY MOUTH ONCE A DAY FOR HIGH BLOOD PRESSURE ORAL ACTIVE 09/30/2024 [id number] 5 LILLIAN ROJAS 2023 90 [facility] AMOXICILLIN TRIHYDRATE 875MG/CLAVU LANATE K 125MG TAB TAKE ONE TABLET BY MOUTH TWICE A DAY ORAL ACTIVE ALAINA FIGUEROA 2023 [facility] ATORVASTATI N CA 40MG TAB TAKE ONE-HALF TABLET BY MOUTH EVERY EVENING ORAL ACTIVE 09/30/2024 [id number] 5 LILLIAN ROJAS 2023 45 [facility] BUSPIRONE HCL 10MG TAB TAKE ONE-HALF TABLET BY MOUTH THREE TIMES A DAY DO NOT TAKE WITH GRAPEFRU IT JUICE. ORAL ACTIVE 09/30/2024 [id number] 5 LILLIAN ROJAS 2023 135 [facility] CAMPHOR/MEN THOL/METHYL SALICYLATE PATCH APPLY 1 PATCH TO SKIN SITE ONCE A DAY FOR PAIN (EXTERNA L USE ONLY) TRANSD ERMAL SUSPEND ED 05/02/2025 [id number] 5 LILLIAN ROJAS 2023 60 [facility] CETIRIZINE HCL 10MG TAB TAKE ONE TABLET BY MOUTH ONCE A DAY ORAL SUSPEND ED 07/28/2025 [id number] 5 LILLIAN ROJAS 2024 90 [facility] DICLOFENAC NA 1% GEL,TOP APPLY 2 GM TO AFFECTED AREA(S) FOUR TIMES A DAY NEEDED FOR PAIN DO NOT EXCEED MORE THAN 16 GRAMS DAILY TO ANY LOWER EXTREMIT Y JOINT. NOT MORE THAN 8 GRAMS DAILY TO ANY UPPER EXTREMIT Y JOINT. MAX 32GM/DAY OVER ALL JOINTS. (MEASURE DOSE WITH RULER ATTACHED INSIDE BOX) TOPICA L ACTIVE 05/02/2025 [id number] 4 LILLIAN ROJAS 2023 200 [facility] ESCITALOPRA M OXALATE 20MG TAB TAKE ONE-HALF TABLET BY MOUTH ONCE A DAY ORAL ACTIVE 09/30/2024 [id number] 5 LILLIAN ROJAS 2023 45 [facility] FLUTICASONE 250MCG/SALM ETEROL 50MCG INHL,ORAL,D ISKUS,60 INHALE 1 INHALATI ON ORAL INHALATI ON TWICE A DAY (OPEN DISKUS; CLICK ONLY ONCE; MAY INHALE TWICE TO COMPLETE DOSE; CLOSE WHEN FINISHED ) RINSE MOUTH AND SPIT AFTER EACH USE. RESPIR ATORY (INHAL ATION) ACTIVE 10/10/2024 [id number] 5 LILLIAN ROJAS 2023 3 [facility] FLUTICASONE PROPIONATE 50MCG/SPRAY SOLN,NASAL, 16GM INSTILL 2 SPRAYS IN NOSTRIL( S) ONCE A DAY (MUST BE USED DIRECTED FOR MINIMUM OF 21 DAYS TO PROVIDE ADEQUATE BENEFITS ) NASAL SUSPEND ED 07/28/2025 [id number] 5 LILLIAN ROJAS 2024 3 [facility] GLIPIZIDE 5MG TAB TAKE ONE TABLET BY MOUTH EVERY DAY BEFORE NOON MEAL TAKE 30 MINUTES BEFORE EATING. ORAL ACTIVE 09/30/2024 [id number] 5 LILLIAN ROJAS 2023 90 [facility] LACTOBACILL US ACIDOPHILUS CAP TAKE 1 CAPSULE BY MOUTH TWICE A DAY ORAL 07/27/2024 [id number] 4 ALAINA Jovita L 2023 100 [facility] [place] POTASSIUM 100MG TAB TAKE ONE TABLET BY MOUTH ONCE A DAY ORAL ACTIVE 09/30/2024 [id number] 5 LILLIAN ROJAS 2023 90 [facility] MELOXICAM 15MG TAB TAKE ONE TABLET BY MOUTH ONCE A DAY ORAL ACTIVE 09/30/2024 [id number] 5 LILLIAN ROJAS 2023 90 [facility] METFORMIN HCL 1000MG TAB TAKE ONE-HALF TABLET BY MOUTH TWICE A DAY WITH MEALS TAKE WITH FOOD. AVOID ALCOHOL. DISCONTI NUE BEFORE GETTING XRAY DYE. ORAL ACTIVE 09/30/2024 [id number] 5 LILLIAN ROJAS 2023 90 [facility] METHYLPREDN ISOLONE 4MG TAB DOSEPAK,21 TAKE TABLETS BY MOUTH DIRECTED ORAL ACTIVE ALAINA Jovita Ida 2023 [facility] MONTELUKAST NA 10MG TAB TAKE ONE TABLET BY MOUTH EVERY EVENING ORAL ACTIVE 09/30/2024 [id number] 5 LILLIAN ROJAS 2023 90 [facility] SILDENAFIL CITRATE 100MG TAB TAKE ONE-HALF TABLET BY MOUTH ONE HOUR PRIOR TO SEXUAL ACTIVITY FOR ERECTILE DYSFUNCT ION NEEDED - LIMIT 6 DOSES PER 30 DAYS ORAL SUSPEND ED 05/02/2025 [id number] 5 LILLIAN ROJAS 2023 9 [facility] Allergies, Adverse Reactions, Alerts Combined list of allergies from Department of Defense and Veterans Affairs facilities. It does not include entries that were removed or entered in error. Substance Category Reaction Severity Reaction type Status Date Reported Comments Source No Known Allergies Drug allergy (disorder) active 03/23/2007 [facility] [place] Results Combined list of recent chemistry, hematology and other laboratory results from Department of Defense and Veterans Affairs, ranging from 15 months to all on record, depending upon the facility. Order Name Results Value Reference Range Date Interpretation Specimen Comments Source CBC LEUKOCYTES [#/VOLUME] IN BLOOD BY AUTOMATED COUNT 8.2 10*3/u L 3.6 - 11.2 09/29 Specimen Type: BLOOD No comment entered. Ordering Provider: Latisha ROJAS Report Released Date/Time: Sep 30, 2023 08:46 AM Reporting Lab: [facility] [address] [place] [address] Performing Lab: [address] [facility] CBC ERYTHROCYTES [#/VOLUME] IN BLOOD BY AUTOMATED COUNT 5.46 10*6/u L 4.10 - 5.70 09/29 Specimen Type: BLOOD No comment entered. Ordering Provider: Latisha ROJAS Report Released Date/Time: Sep 30, 2023 08:46 AM Reporting Lab: [facility] [address] [place] [address] Performing Lab: [facility] [address] [place] [address] [facility] CBC HEMOGLOBIN [MASS/VOLUME ] IN BLOOD 16.2 g/dL 13.1 - 16.8 09/29 Specimen Type: BLOOD No comment entered. Ordering Provider: Latisha ROJAS Report Released Date/Time: Sep 30, 2023 08:46 AM Reporting Lab: [facility] [address] [place] [address] Performing Lab: [facility] [address] [place] [address] [facility] CBC HEMATOCRIT [VOLUME FRACTION] OF BLOOD 47.6 38.2 - 48.4 09/29 Specimen Type: BLOOD No comment entered. Ordering Provider: Latisha ROJAS Report Released Date/Time: Sep 30, 2023 08:46 AM Reporting Lab: [facility] [address] [place] [phone] Performing Lab: [phone] [place] [address] [facility] CBC MCV [ENTITIC VOLUME] BY AUTOMATED COUNT 87.2 fL 80.0 - 100.0 09/29 Specimen Type: BLOOD No comment entered. Ordering Provider: Latisha ROJAS Report Released Date/Time: Sep 30, 2023 08:46 AM Reporting Lab: [place] [id number] Performing Lab: [place] [id number] [facility] CBC MCH [ENTITIC MASS] BY AUTOMATED COUNT 29.7 pg 27.0 - 34.0 09/29 Specimen Type: BLOOD No comment entered. Ordering Provider: Latisha ROJAS Report Released Date/Time: Sep 30, 2023 08:46 AM Reporting Lab: [place] [id number] Performing Lab: [place] [id number] [facility] CBC MCHC [MASS/VOLUME ] BY AUTOMATED COUNT 34.0 g/dL 33.0 - 36.0 09/29 Specimen Type: BLOOD No comment entered. Ordering Provider: Latisha ROJAS Report Released Date/Time: Sep 30, 2023 08:46 AM Reporting Lab: [place] [phone] Performing Lab: [phone] [place] [address] [facility]OC CBC PLATELETS [#/VOLUME] IN BLOOD BY AUTOMATED COUNT 225 10*3/u L 150 - 400 09/29 Specimen Type: BLOOD No comment entered. Ordering Provider: Latisha ROJAS Report Released Date/Time: Sep 30, 2023 08:46 AM Reporting Lab: [place] [address] Performing Lab: [facility] [address] [phone] [place] [address] [facility]OC CBC PLATELET MEAN VOLUME [ENTITIC VOLUME] IN BLOOD BY AUTOMATED COUNT 11.3 fL 7.5 - 11.2 09/29 H Specimen Type: BLOOD No comment entered. Ordering Provider: Latisha ROJAS Report Released Date/Time: Sep 30, 2023 08:46 AM Reporting Lab: [place] [address] Performing Lab: [address] [facility] CBC ERYTHROCYTE DISTRIBUTION WIDTH [RATIO] BY AUTOMATED COUNT 12.9 11.8 - 15.1 09/29 Specimen Type: BLOOD No comment entered. Ordering Provider: Latisha ROJAS Report Released Date/Time: Sep 30, 2023 08:46 AM Reporting Lab: [place] [address] Performing Lab: [address] [facility] CBC LYMPHOCYTES/ 100 LEUKOCYTES IN BLOOD BY AUTOMATED COUNT 21 09/29 Specimen Type: BLOOD No comment entered. Ordering Provider: Latisha ROJAS Report Released Date/Time: Sep 30, 2023 08:46 AM Reporting Lab: [place] [address] Performing Lab: [address] [facility] CBC MONOCYTES/10 0 LEUKOCYTES IN BLOOD BY AUTOMATED COUNT 10 09/29 Specimen Type: BLOOD No comment entered. Ordering Provider: Latisha ROJAS Report Released Date/Time: Sep 30, 2023 08:46 AM Reporting Lab: [place] [address] Performing Lab: [address] [facility] CBC NEUTROPHILS/ 100 LEUKOCYTES IN BLOOD BY AUTOMATED COUNT 65 09/29 Specimen Type: BLOOD No comment entered. Ordering Provider: Latisha ROJAS Report Released Date/Time: Sep 30, 2023 08:46 AM Reporting Lab: [facility] [address] [place] [address] Performing Lab: [facility] [address] [place], [place] [id number] [facility] CBC EOSINOPHILS/ 100 LEUKOCYTES IN BLOOD BY AUTOMATED COUNT 2 09/29 Specimen Type: BLOOD No comment entered. Ordering Provider: Latisha ROJAS Report Released Date/Time: Sep 30, 2023 08:46 AM Reporting Lab: [facility] [address] [place] [address] Performing Lab: [address] [facility] CBC BASOPHILS/10 0 LEUKOCYTES IN BLOOD BY AUTOMATED COUNT 1 09/29 Specimen Type: BLOOD No comment entered. Ordering Provider: Latisha ROJAS Report Released Date/Time: Sep 30, 2023 08:46 AM Reporting Lab: [facility] [address] [place] [address] Performing Lab: [address] [facility] CBC LYMPHOCYTES [#/VOLUME] IN BLOOD BY AUTOMATED COUNT 1.75 10*3/u L 0.77 - 4.50 09/29 Specimen Type: BLOOD No comment entered. Ordering Provider: Latisha ROJAS Report Released Date/Time: Sep 30, 2023 08:46 AM Reporting Lab: [facility] [address] [place] [address] Performing Lab: [facility] [address] [place] [address] [facility] CBC MONOCYTES [#/VOLUME] IN BLOOD BY AUTOMATED COUNT 0.84 10*3/u L 0.19 - 0.80 09/29 H Specimen Type: BLOOD No comment entered. Ordering Provider: Latisha ROJAS Report Released Date/Time: Sep 30, 2023 08:46 AM Reporting Lab: [place] [id number] Performing Lab: [address] [phone] [facility] CBC NEUTROPHILS [#/VOLUME] IN BLOOD BY AUTOMATED COUNT 5.34 10*3/u L 2.10 - 8.00 09/29 Specimen Type: BLOOD No comment entered. Ordering Provider: Latisha ROJAS Report Released Date/Time: Sep 30, 2023 08:46 AM Reporting Lab: [place] [address] Performing Lab: [address] [facility] CBC EOSINOPHILS [#/VOLUME] IN BLOOD BY AUTOMATED COUNT 0.20 10*3/u L 0.00 - 0.60 09/29 Specimen Type: BLOOD No comment entered. Ordering Provider: Latisha ROJAS Report Released Date/Time: Sep 30, 2023 08:46 AM Reporting Lab: [place] [address] Performing Lab: [address] [facility] CBC BASOPHILS [#/VOLUME] IN BLOOD BY AUTOMATED COUNT 0.05 10*3/u L 0.00 - 0.20 09/29 Specimen Type: BLOOD No comment entered. Ordering Provider: Latisha ROJAS Report Released Date/Time: Sep 30, 2023 08:46 AM Reporting Lab: [place] [address] Performing Lab: [address] [facility] COMPREHENSI VE METABOLIC PANEL CREATININE [MASS/VOLUME ] IN SERUM OR PLASMA 0.85 mg/dL 0.7 - 1.3 09/29 Specimen Type: PLASMA Comment: No hemolysis noted. Ordering Provider: Latisha ROJAS Report Released Date/Time: Sep 30, 2023 08:46 AM Reporting Lab: [facility] [address] [facility] [phone] Performing Lab: [facility] [address] [place] [phone] [facility] COMPREHENSI VE METABOLIC PANEL UREA NITROGEN [MASS/VOLUME ] IN SERUM OR PLASMA 10.9 mg/dL 9.0 - 25.0 09/29 Specimen Type: PLASMA Comment: No hemolysis noted. Ordering Provider: Latisha ROJAS Report Released Date/Time: Sep 30, 2023 08:46 AM Reporting Lab: [facility] [address] [facility] [phone] Performing Lab: [phone] [place] [address] [facility]OC COMPREHENSI VE METABOLIC PANEL GLUCOSE [MASS/VOLUME ] IN SERUM OR PLASMA 226 mg/dL 72 - 99 09/29 H Specimen Type: PLASMA Comment: No hemolysis noted. Ordering Provider: Latisha ROJAS Report Released Date/Time: Sep 30, 2023 08:46 AM Reporting Lab: [facility] [address] [place] [phone] Performing Lab: [facility] [address] [place] [phone] [facility] COMPREHENSI VE METABOLIC PANEL SODIUM [MOLES/VOLUM E] IN SERUM OR PLASMA 139 meq/L 136 - 145 09/29 Specimen Type: PLASMA Comment: No hemolysis noted. Ordering Provider: Latisha ROJAS Report Released Date/Time: Sep 30, 2023 08:46 AM Reporting Lab: [facility] [address] [place] [phone] Performing Lab: [facility] [address] [place] [phone] [facility] COMPREHENSI VE METABOLIC PANEL POTASSIUM [MOLES/VOLUM E] IN SERUM OR PLASMA 3.9 meq/L 3.5 - 5 09/29 Specimen Type: PLASMA Comment: No hemolysis noted. Ordering Provider: Latisha ROJAS Report Released Date/Time: Sep 30, 2023 08:46 AM Reporting Lab: [facility] [address] [facility] [phone] Performing Lab: [facility] [address] [place] [phone] [facility] COMPREHENSI VE METABOLIC PANEL CHLORIDE [MOLES/VOLUM E] IN SERUM OR PLASMA 105 meq/L 98 - 107 09/29 Specimen Type: PLASMA Comment: No hemolysis noted. Ordering Provider: Latisha ROJAS Report Released Date/Time: Sep 30, 2023 08:46 AM Reporting Lab: [facility] [address] [facility] [phone] Performing Lab: [address] [phone] [facility] COMPREHENSI VE METABOLIC PANEL CARBON DIOXIDE, TOTAL [MOLES/VOLUM E] IN SERUM OR PLASMA 24 meq/L 22 - 31 09/29 Specimen Type: PLASMA Comment: No hemolysis noted. Ordering Provider: Latisha ROJAS Report Released Date/Time: Sep 30, 2023 08:46 AM Reporting Lab: [facility] [address] [place] [phone] Performing Lab: [address] [phone] [facility] COMPREHENSI VE METABOLIC PANEL CALCIUM [MASS/VOLUME ] IN SERUM OR PLASMA 9.7 mg/dL 8.4 - 10.4 09/29 Specimen Type: PLASMA Comment: No hemolysis noted. Ordering Provider: Latisha ROJAS Report Released Date/Time: Sep 30, 2023 08:46 AM Reporting Lab: [facility] [address] [place] [phone] Performing Lab: [facility] [address] [place] [phone] [facility] COMPREHENSI VE METABOLIC PANEL PROTEIN [MASS/VOLUME ] IN SERUM OR PLASMA 7.5 g/dL 6 - 8.6 09/29 Specimen Type: PLASMA Comment: No hemolysis noted. Ordering Provider: Latisha ROJAS Report Released Date/Time: Sep 30, 2023 08:46 AM Reporting Lab: [facility] [address] [facility] [address] Performing Lab: [facility] [address] [place] [phone] [facility] COMPREHENSI VE METABOLIC PANEL ALBUMIN [MASS/VOLUME ] IN SERUM OR PLASMA 4.3 g/dL 3.4 - 5 09/29 Specimen Type: PLASMA Comment: No hemolysis noted. Ordering Provider: Latisha ROJAS Report Released Date/Time: Sep 30, 2023 08:46 AM Reporting Lab: [facility] [address] [place], [place] [phone] Performing Lab: [address] [phone] [place] [address] [facility]OC COMPREHENSI VE METABOLIC PANEL BILIRUBIN.TO RANDY [MASS/VOLUME ] IN SERUM OR PLASMA 0.6 mg/dL 0.2 - 1.2 09/29 Specimen Type: PLASMA Comment: No hemolysis noted. Ordering Provider: Latisha ROJAS Report Released Date/Time: Sep 30, 2023 08:46 AM Reporting Lab: [facility] [address] [place] [phone] Performing Lab: [facility] [phone] [facility] COMPREHENSI VE METABOLIC PANEL ALKALINE PHOSPHATASE [ENZYMATIC ACTIVITY/VOL UME] IN SERUM OR PLASMA 61 U/L 40 - 150 09/29 Specimen Type: PLASMA Comment: No hemolysis noted. Ordering Provider: Latisha ROJAS Report Released Date/Time: Sep 30, 2023 08:46 AM Reporting Lab: [facility] [address] [place] [phone] Performing Lab: [facility] [address] [place] [phone] [facility] COMPREHENSI VE METABOLIC PANEL ASPARTATE AMINOTRANSFE RASE [ENZYMATIC ACTIVITY/VOL UME] IN SERUM OR PLASMA 24 U/L 5 - 34 09/29 Specimen Type: PLASMA Comment: No hemolysis noted. Ordering Provider: Latisha ROJAS Report Released Date/Time: Sep 30, 2023 08:46 AM Reporting Lab: [facility] [address] [place], [place] [phone] Performing Lab: [facility] [address] [place] [phone] [place] [address] [facility]OC COMPREHENSI VE METABOLIC PANEL ALANINE AMINOTRANSFE RASE [ENZYMATIC ACTIVITY/VOL UME] IN SERUM OR PLASMA 35 U/L 8 - 40 09/29 Specimen Type: PLASMA Comment: No hemolysis noted. Ordering Provider: Latisha ROJAS Report Released Date/Time: Sep 30, 2023 08:46 AM Reporting Lab: [place] [address] Performing Lab: [place] [phone] [facility] COMPREHENSI VE METABOLIC PANEL GLOMERULAR FILTRATION RATE/1.73 SQ M.PREDICTED [VOLUME RATE/AREA] IN SERUM, PLASMA OR BLOOD BY CREATININE-B ASED FORMULA (CKD-EPI 2020) 109.9 60 09/29 Specimen Type: PLASMA Comment: No hemolysis noted. Ordering Provider: Latisha ROJAS Report Released Date/Time: Sep 30, 2023 08:46 AM Reporting Lab: [facility] [address] [place], [place] [phone] Performing Lab: [place] [phone] [place] [address] [facility]OC HGA1C HEMOGLOBIN A1C/HEMOGLOB IN.TOTAL IN BLOOD 8.0 4.0 - 6.0 09/29 H Specimen Type: BLOOD No comment entered. Ordering Provider: Latisha ROJAS Report Released Date/Time: Sep 30, 2023 08:46 AM Reporting Lab: [facility] [address] [place], [place] [phone] Performing Lab: [facility] [address] [place] [phone] [place] [address] CBOC LIPID PANEL (STL) CHOLESTEROL [MASS/VOLUME ] IN SERUM OR PLASMA 195 mg/dL 0 - 200 09/29 Specimen Type: PLASMA Comment: No hemolysis noted. Ordering Provider: Latisha RJOAS Report Released Date/Time: Sep 30, 2023 08:46 AM Reporting Lab: [facility] [address] [place] [address] Performing Lab: [facility] [address] [place] [address] [phone] [facility] LIPID PANEL (STL) TRIGLYCERIDE [MASS/VOLUME ] IN SERUM OR PLASMA 232 mg/dL 0 - 150 09/29 H Specimen Type: PLASMA Comment: No hemolysis noted. Ordering Provider: Latisha ROJAS Report Released Date/Time: Sep 30, 2023 08:46 AM Reporting Lab: [place] [address] Performing Lab: [address] [facility] LIPID PANEL (STL) CHOLESTEROL IN LDL [MASS/VOLUME ] IN SERUM OR PLASMA BY CALCULATION 116 mg/dL 09/29 Specimen Type: PLASMA Comment: No hemolysis noted. Ordering Provider: Latisha ROJAS Report Released Date/Time: Sep 30, 2023 08:46 AM Reporting Lab: [facility] [address] [place] [address] Performing Lab: [address] [facility] LIPID PANEL (STL) CHOLESTEROL IN HDL [MASS/VOLUME ] IN SERUM OR PLASMA 33 mg/dL 40 09/29 L Specimen Type: PLASMA Comment: No hemolysis noted. Ordering Provider: Latisha ROJAS Report Released Date/Time: Sep 30, 2023 08:46 AM Reporting Lab: [place] [address] Performing Lab: [address] [facility] TSH W/ REFLEX FT4 (STL) THYROTROPIN [UNITS/VOLUM E] IN SERUM OR PLASMA 1.120 u[IU]/ mL 0.47 - 5 09/29 Specimen Type: PLASMA No comment entered. Ordering Provider: Latisha ROJAS Report Released Date/Time: Sep 30, 2023 08:46 AM Reporting Lab: [facility] [address] [facility] [phone] Performing Lab: [facility] [address] [place] [phone] [facility] VITAMIN D, 25-HYDROXY 25-HYDROXYVI TAMIN D3 [MASS/VOLUME ] IN SERUM OR PLASMA 24.0 ng/mL 30 - 96 09/29 L Specimen Type: SERUM No comment entered. Ordering Provider: Latisha ROJAS Report Released Date/Time: Sep 30, 2023 08:46 AM Reporting Lab: [facility] [address] [facility] [place] [phone] Performing Lab: [address] [phone] [facility] Vital Signs Combined list of inpatient and outpatient Vital Signs from Department of Defense and Veterans Affairs, ranging from 12 months to all on record, depending upon the facility. Vital Sign Value Date Comments Source SYSTOLIC BLOOD PRESSURE 173 05/15/2024 09:31:57 [facility] DIASTOLIC BLOOD PRESSURE 107 05/15/2024 09:31:57 [facility] PULSE OXIMETRY 97 05/15/2024 09:31:57 [facility] TEMPERATURE 98.5 05/15/2024 09:31:57 [facility] PULSE 92 05/15/2024 09:31:[address] [facility] RESPIRATION 20 05/15/2024 09:31:57 [facility] SYSTOLIC BLOOD PRESSURE 168 05/01/2024 14:30:11 [facility] DIASTOLIC BLOOD PRESSURE 92 05/01/2024 14:30:11 [facility] PULSE OXIMETRY 96 05/01/2024 14:30:11 [facility] WEIGHT 259 05/01/2024 14:30:[address] [facility] BMI 41 kg/m2 05/01/2024 14:30:[address] [facility] PAIN 8 05/01/2024 14:30:[address] [facility] TEMPERATURE 98.1 05/01/2024 14:30:11 [facility] PULSE 95 05/01/2024 14:30:[address] [facility] RESPIRATION 20 05/01/2024 14:30:11 [facility] SYSTOLIC BLOOD PRESSURE 176 01/05/2024 14:15:47 [facility] DIASTOLIC BLOOD PRESSURE 95 01/05/2024 14:15:47 [facility] PULSE OXIMETRY 96 01/05/2024 14:15:47 [facility] WEIGHT 259.9 01/05/2024 14:15:[address] [facility] BMI 41 kg/m2 01/05/2024 14:15:[address] [facility] PAIN 7 01/05/2024 14:15:[address] [facility] TEMPERATURE 99.4 01/05/2024 14:15:47 [facility] PULSE 101 01/05/2024 14:15:[address] [facility] RESPIRATION 20 01/05/2024 14:15:47 [facility] SYSTOLIC BLOOD PRESSURE 147 12/28/2023 15:07:00 [facility] DIASTOLIC BLOOD PRESSURE 90 12/28/2023 15:07:00 [facility] PULSE OXIMETRY 96 12/28/2023 15:07:00 [facility] WEIGHT 266 12/28/2023 15:07:[address] [facility] BMI 42 kg/m2 12/28/2023 15:07:[address] [facility] PAIN 7 12/28/2023 15:07:[address] [facility] TEMPERATURE 98 12/28/2023 15:07:00 [facility] PULSE 96 12/28/2023 15:07:[address] [facility] RESPIRATION 18 12/28/2023 15:07:00 [facility] SYSTOLIC BLOOD PRESSURE 143 09/30/2023 08:33:27 [facility] DIASTOLIC BLOOD PRESSURE 90 09/30/2023 08:33:27 [...] Source [place] [id number] knee injury BILL MEJIA III 05/12 Released with Work/Duty Limitations [place]) [place] [id number] PT NEEDS REFERRA L TO UROLOGY BILL MEJIA III Brenda 10/29 [place]ased w[place]o Limitations [place] [id number] fever/s tiff neck/soto /earach e/dizzy BERNARDO CARLOS 12/04 Immediate Ref[place] [facility] [facility] [place] As[place] OUTPATIENT [id number] hearing exam ROGERIO BRAUN 03/07 Released w[place]itations [place] [place] [place] [facility] [id number] PREDEPL OYMENT MEDICAL SCREENI NG DELETED_HA RUPESH AN H 03/08 [place] [place] OUTPAT[place] [id number] SRP knee pain, LBP Groin pain, h/a l shoulde r pain kidney stones audiogr am CASSIDY MUNOZ H 03/08 [place] [place]PATIENT [id number] bilater al knee pain, LBP, groin pain h/a/ shoulde r pain audiogr am kidney st SHAYNA MONAHAN S 03/14 [place] [facility] [facility] [place] [id number] SRP f/u MRI bilater al knees TANIYASHAYNA S 03/22 [place] [facility] [id number] joint pain, localiz ed in the knee APRIL GUSMAN 03/27 Released with Work/D[place] Lim[place] [facility] OFFICE O/P NEW MOD 45 MIN [id number] Diagnos is: ICD-10- CM R73.03 Prediab torres ROJAS,Latisha ODD 09/29 [facility] Outpatient Encounter [id number] 10/05 [facility] OFFICE O/P EST LOW 20 MIN [id number] Diagnos is: ICD-10- CM Z02.9 Encount er for adminis trative examina tions, unspeci braydon ROJAS,T ODD 10/09 [facility] Outpatient Encounter [id number] 12/20 [facility] Outpatient Encounter [id number] DOMINICPETE Gomez 12/21 [facility] OFF/OP EST MAY X REQ PHY/QHP [id number] Diagnos is: ICD-10- CM M25.569 Pain in unspeci fied knee PETE ALFARO 12/25 [facility] Outpatient Encounter [id number] MIKE RASCON 12/26 [facility] OFFICE O/P EST LOW 20 MIN [id number] Diagnos is: ICD-10- CM M54.50 Low back pain, unspeci fied SHAN,CH IDIMMA N 12/27 [facility] Outpatient Encounter [id number] Yasmeen TOLEDO 01/02 [facility] Outpatient Encounter [id number] Yasmeen TOLEDO 01/02 [facility] OFFICE O/P EST LOW 20 MIN [id number] Diagnos is: ICD-10- CM Z02.9 Encount er for adminis trative examina tions, unspeci fied ROJAS,T ODD 01/04 [facility] PSYTX W PT 30 MINUTES [id number] Diagnos is: ICD-10- CM Z91.82 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 Yasmeen TOLEDO JYOTSNAJovita 03/30 [facility] OFFICE O/P EST LOW 20 MIN [id number] Diagnos is: ICD-10- CM N52.9 Male erectil e dysfunc tion, unspeci fied ROJAS,T ODD 05/01 [facility] MAY X REQ PHY/QHP [id number] Diagnos is: ICD-10- CM I10 Essenti al (primar y) hyperte nsion KENNEY ART JANNET A 05/15 [facility] Outpatient Encounter [id number] PETE ALFARO 06/07 [facility] Outpatient Encounter [id number] [facility] 06/07 [facility] Outpatient Encounter [id number] PETE ALFARO 06/07 [facility] OFFICE O/P EST LOW 20 MIN [id number] Diagnos is: ICD-10- CM J01.90 Acute sinusit is, unspeci fied SEB FIGUEROA 06/07 [facility] Outpatient Encounter [id number] KENNEY ART JANNET A 07/25 [facility] Outpatient Encounter [id number] KAELYNKENNEY JANNET A 07/[facility] En[facility] [id number] KENNEY ART 08/01 [facility] Procedures Combined list of: 1) Procedures from Department of Veterans Affairs facilities going back up to thelast 18 months, not all [place] non-surgical procedures are included; 2) All procedures from the Department of Defense facilities. Procedure Procedure Type Code Date Perfomer Comments Sourc e SELF-CARE/HOME MANAGMENT TRAIN (EG,ACT OF DAILY LIVING (ADL) &COMPENSAT TRAIN,MEAL PREPARATION,SAFETY PROCS,AND INSTRUCT IN USE OF ASST TECHNOLOGY DEV/ADPT EQUIP) DIR ONE-ON-ONE CONT,EA 15 MINUTES 7 [facility] IMMUNIZATION ADMINISTRATION (INCLUDES PERCUTANEOUS, INTRADERMAL, SUBCUTANEOUS, OR INTRAMUSCULAR INJECTIONS); 1 VACCINE (SINGLE OR COMBINATION VACCINE/TOXOID) 7 [facility] AUDIOMETRIC TESTING OF GROUPS 7 DoD NONINVASIVE [...] (AKD), FOR SUBCUTANEOUS USE (U.S. ) 5 [facility] RANGE OF MOTION MEASUREMENTS AND REPORT (SEPARATE PROCEDURE); EACH EXTREMITY (EXCLUDING HAND) OR EACH TRUNK SECTION (SPINE) 4 DoD INDIVIDUAL PSYCHOTHERAPY, INSIGHT ORIENTED, BEHAVIOR MODIFYING AND/OR SUPPORTIVE, IN AN OFFICE OR OUTPATIENT FACILITY, APPROXIMATELY 20 TO 30 MINUTES [id number] WITH THE PATIENT 4 DoD MEDICAL NUTRITION THERAPY; GROUP (2 OR MORE INDIVIDUAL(S)), EACH 30 MINUTES 4 [facility] MEDICAL NUTRITION THERAPY; GROUP (2 OR MORE INDIVIDUAL(S)), EACH 30 MINUTES 4 DoD HANDLING AND/OR CONVEYANCE OF SPECIMEN FOR TRANSFER FROM THE OFFICE TO A LABORATORY 4 [facility] INDIVIDUAL PSYCHOTHERAPY, INSIGHT ORIENTED, BEHAVIOR MODIFYING AND/OR SUPPORTIVE, IN AN OFFICE OR OUTPATIENT FACILITY, APPROXIMATELY 20 TO 30 MINUTES RLDE-YE-HEOM WITH THE PATIENT 4 DoD INJECTION, CEFAZOLIN SODIUM, 500 MG 3 DoD PURE TONE AUDIOMETRY (THRESHOLD); AIR ONLY 3 [facility] Physical Therapy Service Evaluation Physical Therapy Service Evaluation [id number] APRIL GUSMAN [facility] Patient Training And Self-Care Skills Patient Training And Self-Care Skills 15555 7 APRIL GUSMAN [facility] Special Physician Services Analysis Of Computerized Data Special Physician Services Analysis Of Computerized Data 94910 7 CHANDA BRAUN Physician Supervised Services Provision Of Special Supplies Physician Supervised Services Provision Of Special Supplies 52709 7 CHANDA BRAUN Physician Supervised Group Educational Services 7 CHANDA BRAUN Threshold Audiogram (Pure Tone) Threshold Audiogram (Pure Tone) 25084 7 CHANDA BRAUN Ear Protector Attenuation Measurements Ear Protector Attenuation Measurements 82450 7 CHANDA BRAUN Audiometry Group Testing Audiometry Group Testing 64533 7 CHANDA BRAUN Immunization Administration By Injection, One Vaccine Immunization Administration By Injection, One Vaccine 44415 7 RUPESH DIAZ [facility] Hepatitis B Vaccine (Active) Adult Dosage 7 RUPESH DIAZ [facility] Venipuncture Venipuncture 19992 7 RUPESH DIAZ [facility] Range Of Motion Evaluation Of Extremity Range Of Motion Evaluation Of Extremity 88281 4 ROBERTO IIIBILL [facility] Social History Combined list of available smoking, tobacco, and other social history from Department of Defense and Veterans Affairs facilities. Social History Type Response Date Comment Sourc e Tobacco smoking status KSIS VA-TOBACCO NEVER USED 09/30/2023 [facility] This section is an empty social history section. [facility] Plan of Care List of future care activities from Department of Veterans Affairs facilities. Additional future care activities may be listed in the Assessment and Plan section. Date/Time Care Activity Care Activity Detail Facili ty 09/28/2024 AMBULATORY - MEDICINE AMBULATORY - MEDICI [facility]
--- OUTSIDE RECORDS SUMMARY | 2024-08-06 19:11 | XMS_ITS | Encounter Summary ---
Author Organization [facility] Address 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
[2024-08-06 19:17] VITALS: BP 175/95; PULSE 92; RESP 20; TEMP 37; O2SAT 99
--- NOTE | 2024-08-06 19:30 | ED.URI ---
HPI - URI/Sore Throat General Chief Complaint: Upper Respiratory Infection Stated Complaint: sinus congestion/ears/throat Source: patient Mode of arrival: ambulatory Limitations: no limitations History of Present Illness HPI Narrative: 44-year-old male presented for complaint of bilateral ear pressure, sinus congestion and pressure with post nasal drainage worsening x3 days. Says the mucous is green. Pt reports fever and body aches 3 days ago which has resolved. has similar symptoms, tested negative for flu and covid. Denies tinnitus, ear drainage, dizziness, sob, wheezing, n/v/d/f/c. Taking nasal spray and cetirizine, and using warm compresses. Related Data Home Medications ?Medication ?Instructions ?Recorded ?Confirmed ?Last Taken ?Type amlodipine 5 mg tablet mg 08/06/24 Unknown History losartan .ROUTE 08/06/24 Unknown History metformin .ROUTE 08/06/24 Unknown History Allergies Allergy/AdvReac Type Severity Reaction Status Date / Time No Known Allergies Allergy Verified 08/06/24 19:18 Review of Systems Review of Systems: per HPI All systems reviewed & are unremarkable except as noted in HPI and below PMFSH Comments At time of signature, agree with nursing past medical, surgical, social and family history. There is no relevant family history pertinent to the presenting complaint Exam Narrative: GENERAL: Well-appearing, and in no acute distress. HEAD: Normocephalic EYES: PERRLA, conjunctivae clear ENT: Nares congested. Mucous membranes moist. Right TM erythematous, bulging and intact; canal not erythematous, no drainage. Left TM pearly mclain with dull light reflex; no tragal tenderness. Oropharynx not erythematous without lesions. Tonsils not enlarged and without exudate, no drooling, no hoarseness, no trismus, uvula midline. CHEST: Clear to auscultation, breath sounds equal. No wheezing, rhonchi, rales, or stridor. No respiratory distress, speaks in full sentences. HEART: Regular rate and rhythm. No murmur heard. SKIN: Warm, dry NEURO: Alert and oriented x3. PSYCH: Normal mood and affect Course Course Emergency Course: Patient is aware of diagnosis, understands and agrees to treatment plan. Anticipatory guidance given. Patient agrees to follow-up as directed and is aware of reasons to seek care at the emergency department. Portions of this record may have been created with voice recognition software [employer] of Care: Express Care Visit Vital Signs Vital signs: Vital Signs Temperature 98.6 F 08/06/24 19:17 Pulse Rate 92 08/06/24 19:17 Respiratory Rate 20 08/06/24 19:17 Blood Pressure 175/95 H 08/06/24 19:17 Pulse Oximetry 99 08/06/24 19:17 Oxygen Delivery Room Air 08/06/24 19:17 Temperature 98.6 F 08/06/24 19:17 Pulse Rate 92 08/06/24 19:17 Respiratory Rate 20 08/06/24 19:17 Blood Pressure 175/95 H 08/06/24 19:17 Pulse Oximetry 99 08/06/24 19:17 Oxygen Delivery Room Air 08/06/24 19:17 Reviewed MDM - URI/Sore Throat MDM Narrative Medical decision making narrative: Discussed physical exam findings. Advised supportive measures and signs/symptoms to go to the ER. Pt is appropriate for outpt treatment and f/u. Differential Diagnosis Differential diagnosis: Likely upper respiratory infection, otitis media, sinusitis, viral infection and pharyngitis Discharge Plan Discharge Clinical Impression: Upper respiratory infection, Otitis media Patient Disposition: Home, Self-Care Condition: Stable Instructions: Antibiotic Form, Ear Infection (ED) Additional Instructions: Your blood pressure reading was elevated (above 120/80) please follow-up with your primary care provider for further evaluation and management. If you develop worsening Blood Pressure symptoms, (headache, vision changes, dizziness, vomiting, chest pain, etc) go to the ER. Call 911. Take antibiotics as directed. Recommend antihistamine such as Benadryl, Zyrtec or Jie for sinus congestion Flonase nasal spray, 1 spray in each nostril once daily until symptoms improve Rest, fluids, and increase humidity of the air at home. Tylenol 1000mg every 8 hours as needed to reduce fever, pain Do not attempt to pop your ear drum with any object Please schedule a follow-up visit with your personal physician If your symptoms persist, change or worsen significantly, go to the emergency department for further evaluation. Patient Language: Syriac Prescriptions: New methylprednisolone [Medrol (Richy)] 4 mg tablets,dose pack See Rx Instructions .ROUTE .COMPLEX Qty: 21 0RF Rx Instructions: orally per package directions amoxicillin-pot clavulanate 875-125 mg tablet 1 tablet PO Q12H 7 Days Qty: 14 0RF No Action amlodipine 5 mg tablet metformin .ROUTE losartan .ROUTE Follow-up/Referrals: [facility] [Primary Care Provider] - Time of Disposition: 19:38
== END 2024-08-06 19:47 | disposition home or self-care (01) ==
PROVIDERS: Emergency Provider Nurse Practitioner Family
DX: J06.9 Acute upper respiratory infection, unspecified (principal); H66.91 Otitis media, unspecified, right ear; I10 Essential (primary) hypertension
CPT/HCPCS: 99203; G0463